=== PATIENT | female | born 1945 | race Caucasian/White ===

== ENCOUNTER 2024-06-07 04:34 | Inpatient (IN) ==
[2024-06-07 05:05] LABS: Basophils # (auto) 0.03 K/uL (0.00-0.20); Basophils % (auto) 0.2 %; Eosinophils # (auto) 0.04 K/uL (0.00-0.50); Eosinophils % (auto) 0.3 %; Hematocrit (blood only) 45.3 % (37.0-47.0); Hemoglobin 14.8 g/dl (12.0-16.0); Immature Granulocytes # (auto) 0.06 K/uL (0.01-0.20); Immature Granulocytes % (auto) 0.4 %; Lymphocytes # (auto) 1.06 K/uL (1.20-3.40); Lymphocytes % (auto) 7.5 %; Mean Corpuscular Hemoglobin 30.1 pg (25.0-34.0); Mean Corpuscular Hgb Conc 32.7 g/dL (32.0-36.0); Mean Corpuscular Volume 92.1 fL (80.0-100.0); Mean Platelet Volume 10.7 fL (9.4-12.4); Monocytes # (auto) 0.77 K/uL (0.11-0.59); Monocytes % (auto) 5.4 %; Neutrophils # (auto) 12.22 K/uL (1.40-6.50); Neutrophils % (auto) 86.2 %; Platelet Count 209 K/uL (130-400); RDW Coefficient of Variation 13.4 % (11.5-14.5); RDW Standard Deviation 45.7 fL (36.4-46.3); Red Blood Count 4.92 M/uL (4.20-5.40); White Blood Count 14.18 K/ul (4.8-10.8)
[2024-06-07] MEDS: HYDROmorphone INJ 0.5 MG/0.5 ML SYR IV STA ×2 (05:05→07:15)
[2024-06-07] MEDS: ONDANSETRON INJ 2 MG/ML 2 ML VIAL IV STA ×2 (05:05→07:14)
[2024-06-07 05:20] LABS: iSTAT Creatinine 1.2 mg/dl (0.6-1.3); iSTAT Hemoglobin 13.9 g/dl (12.0-16.0); iSTAT Ionized Calcium 1.12 mmol/l (1.12-1.32); iSTAT Potassium 3.3 mmol/L (3.3-5.0)
--- NOTE | 2024-06-07 05:30 | Emergency Department Note ---
Impression & Plan Acute pancreatitis admit to the [facility] ED Provider Note NAME: CHRIS JENSEN AGE: 78 SEX: Female INFORMANT: Patient ED PROVIDER(S): Gianna Duenas DO CHIEF COMPLAINT: epigastric abdominal pain PLAN: Disposition: admit to the [facility] MEDICAL DECISION MAKING: this is a 78-year-old female patient who presents to the emergency department epigastric abdominal pain since last night. patient had developed nausea and vomiting at bedtime. Patient became cool and clammy as the pain increased. Laboratory studies revealed mild leukocytosis with a white count of 14.1. H&H were stable. Glucose was 175. EKG was normal. Troponin was normal. Lipase was significantly elevated at 13,400. CT scan of the abdomen/pelvis revealed evidence of pancreatitis. Upon presentation, I also had concern for possible aortic etiology and the patient had scans of her chest and abdomen. Patient received multiple doses of IV Dilaudid and Zofran for pain and nausea. She remains comfortable at this time while I discussed the case with the [facility] Care/management discussed with: patient's family members who are at the bedside, the assistant front desk manager, and the [facility] Triage Nursing notes: reviewed and agree With them. Vital Signs: reviewed and remarkable for hypertension Additional History obtained from: family members at the bedside Chronic Medical/Social Conditions affecting care: previous stroke, A-fib on anticoagulation, hypertension Differential Diagnosis: abdominal aortic aneurysm, aortic dissection, pancreatitis,gastritis, gastric ulcer, duodenal ulcer Diagnostics, independently interpreted by me: ECG: normal sinus rhythm at a rate of 71 with a right bundle branch block. There is no ST segment elevation or signs of ischemia. Cardiac Monitoring: Normal sinus rhythm at 73 Imaging studies: CT scan of the abdomen/pelvis: As per stat RAD CT scan of the chest: As per stat rad HPI: 78 year old Female arrives for evaluation of epigastric abdominal pain. patient was preparing for bed when she developed moderate epigastric abdominal pain with associated nausea and vomiting. patient was urinating Normally and had a normal bowel movement but this did not relieve her discomfort. PAST MEDICAL HISTORY: hypertension, A-fib PAST SURGICAL HISTORY: Cholecystectomy, stroke SOCIAL HISTORY: patient lives in [place] with her , she denies any alcohol or tobacco use. HOME MEDICATIONS: See list ALLERGIES: none VITALS: See Below PHYSICAL EXAMINATION: HEENT: Head - normocephalic and atraumatic. Pupils are equal, round, and reactive to light. Extraocular eye muscles are intact, and sclera are anicteric. Nose - moist nasal mucosa without discharge. Mouth - moist buccal mucosa. Oropharynx is nonerythematous and there is no tonsillar exudate or edema noted. Neck: Supple; no JVD or cervical lymphadenopathy. Heart: Regular rate and rhythm. There is a normal S1 and S2 with no murmurs, clicks, or gallops appreciated. Lungs: Clear to auscultation bilaterally with no wheezes, rales, or rhonchi. Abdomen: Soft, Moderate tenderness to palpation in the epigastrium. There are normal bowel sounds noted. There are no palpable pulsatile masses or hepatosplenomegaly. There is no guarding, rigidity, or rebound noted. Extremities: No evidence of cyanosis, clubbing, or edema. There are easily palpable peripheral pulses. Skin: Pale and diaphoretic. Emergency department treatment: gambling monitor, IV Dilaudid, IV Zofran, IV normal saline bolus, IV Zofran, IV Dilaudid. Emergency department course: The patient was evaluated in room A-10. A complete history and physical was performed. An IV lock was initiated and labs were drawn as above. An order was placed for continuous cardiac monitoring. The patient was in a A normal sinus rhythm at a rate of 73. Patient was medicated with IV Dilaudid and IV Zofran for pain and nausea. She went for a stat CT scan of the chest and abdomen to rule out aortic dissection. This was negative for aortic pathology but revealed evidence of acute pancreatitis. Patient's pain was returning and she was dry heaving.Patient was treated with IV Zofran and IV Dilaudid for her pain. I discussed the case with the [facility] Hospitalist and they will evaluate for further inpatient care. Past Med/Surg History Problem List (Updated 06/07/24 @ 07:52 by Gianna Duenas DO) Acute pancreatitis (Acute) Acute pancreatitis Social History Smoking Status: Never smoker Preferred Language: Frisian Feels Safe at Home: Yes Home Meds Home Medications Medication Instructions Recorded Confirmed apixaban 5 mg tablet (Eliquis) 5 mg PO BID 06/07/24 06/07/24 atorvastatin 10 mg tablet 40 mg PO DAILY 06/07/24 06/07/24 esomeprazole magnesium 20 mg 20 mg PO DAILY 06/07/24 06/07/24 capsule,delayed release (Nexium 24HR) lisinopril 10 mg tablet 10 mg PO BID 06/07/24 06/07/24 metoprolol tartrate 25 mg tablet 25 mg PO BID 06/07/24 06/07/24 Results & Data (ED) Vital Signs Vital Signs - 24 hr 06/07/24 04:36 06/07/24 05:00 06/07/24 05:30 Temperature 36.5 C Temperature Source Oral Pulse Rate 82 75 Pulse Rate [Left Radial] 73 Pulse Rate from SpO2 Sensor Pulse Rhythm Regular Pulse Rhythm [Left Radial] Regular Pulse Strength [Left Radial] Normal Respiratory Rate 22 18 16 Respiratory Effort / Characteristics Non-Labored Spontaneous Non-Labored Spontaneous Respiratory Depth Normal Normal Respiratory Pattern Regular Blood Pressure 152/69 H Blood Pressure [Right Arm] 131/66 Blood Pressure Mean 96 Blood Pressure Mean [Right Arm] 87 Blood Pressure Position [Right Arm] Pulse Oximetry 93 95 98 Oxygen Delivery Method Room Air Room Air Nasal Cannula Oxygen Flow Rate 2 Sepsis Recent Fever Within 48 Hours No Sepsis New/Unexplained Change in Mental Status No Sepsis Action Taken by Nursing No Action Required 06/07/24 06:30 06/07/24 07:00 Temperature Temperature Source Pulse Rate 68 Pulse Rate [Left Radial] 68 Pulse Rate from SpO2 Sensor 70 Pulse Rhythm Pulse Rhythm [Left Radial] Regular Pulse Strength [Left Radial] Normal Respiratory Rate 17 14 Respiratory Effort / Characteristics Non-Labored Spontaneous Respiratory Depth Normal Respiratory Pattern Regular Blood Pressure 160/87 H Blood Pressure [Right Arm] 144/77 H Blood Pressure Mean 111 Blood Pressure Mean [Right Arm] 99 Blood Pressure Position [Right Arm] Sitting Pulse Oximetry 99 99 Oxygen Delivery Method Nasal Cannula Oxygen Flow Rate 2 Sepsis Recent Fever Within 48 Hours Sepsis New/Unexplained Change in Mental Status Sepsis Action Taken by Nursing Laboratory Data 06/07/24 04:50 06/07/24 04:50 Lab Results 06/07/24 06/07/24 Range/Units 04:50 05:07 WBC 14.18 H (4.8-10.8) K/ul RBC 4.92 (4.20-5.40) M/uL Hgb 14.8 (12.0-16.0) g/dl POC Hgb 13.9 (12.0-16.0) g/dl Hct 45.3 (37.0-47.0) % POC Hct 41 (37-47) % MCV 92.1 (80.0-100.0) fL MCH 30.1 (25.0-34.0) pg MCHC 32.7 (32.0-36.0) g/dL RDW Std Deviation 45.7 (36.4-46.3) fL RDW Coeff of Allison 13.4 (11.5-14.5) % Plt Count 209 (130-400) K/uL MPV 10.7 (9.4-12.4) fL Immature Gran % (Auto) 0.4 % Neut % (Auto) 86.2 % Lymph % (Auto) 7.5 % [place] % (Auto) 5.4 % Eos % (Auto) 0.3 % Baso % (Auto) 0.2 % Neut # (Auto) 12.22 H (1.40-6.50) K/uL Lymph # (Auto) 1.06 L (1.20-3.40) K/uL [place] # (Auto) 0.77 H (0.11-0.59) K/uL Eos # (Auto) 0.04 (0.00-0.50) K/uL Baso # (Auto) 0.03 (0.00-0.20) K/uL Immature Gran # (Auto) 0.06 (0.01-0.20) K/uL POC Sodium 143 (135-144) mmol/L Sodium 140 (136-145) mmol/L POC Potassium 3.3 (3.3-5.0) mmol/L Potassium TNP POC Chloride 103 (101-112) mmol/L Chloride 105 (98-107) mmol/L Carbon Dioxide 28 (21-32) mmol/L POC Total CO2 27 (24-31) mmol/L Anion Gap 7 (3-11) POC Anion Gap 17.0 (16-25) mmol/L POC BUN 21 H (7-18) mg/dl BUN 22 (6-23) mg/dl Creatinine 1.10 (0.6-1.2) mg/dl POC Creatinine 1.2 (0.6-1.3) mg/dl Est Cr Clr Drug Dosing Not Reportable Est GFR ( Amer) 56.1 ml/min Est GFR (Non-Af Amer) 48.4 ml/min BUN/Creatinine Ratio 20.0 (10-20) Glucose 175 H (70-99(Fasting)) mg/dl POC Glucose (other) 165 H (70-99) mg/dl Calcium 9.3 (8.6-10.3) mg/dl POC Ioniz Calcium Maeve 1.12 (1.12-1.32) mmol/l Total Bilirubin 0.9 (0.2-1.0) mg/dl AST TNP ALT 92 H (7-52) U/L Alkaline Phosphatase 114 H (34-104) U/L Troponin I High Sens 10.0 (0-14) pg/ml Total Protein 7.5 (6.0-8.3) gm/dl Albumin 4.0 (3.4-5.0) gm/dl Globulin 3.5 (2.5-4.0) gm/dl Albumin/Globulin Ratio 1.1 (0.9-2) Lipase 46334 H (11-82) U/L Administered Medications Discontinued Medications Hydromorphone HCl (Hydromorphone Inj 0.5 Mg/0.5 Ml Syr) 0.5 mg IV NOW STA Stop: 06/07/24 04:59 Last Admin: 06/07/24 05:05 Dose: 0.5 mg Documented By: CARL Hydromorphone HCl (Hydromorphone Inj 0.5 Mg/0.5 Ml Syr) 0.5 mg IV NOW STA Stop: 06/07/24 07:06 Last Admin: 06/07/24 07:15 Dose: 0.5 mg Documented By: Sodium Chloride (Nss) 500 mls @ 999 mls/hr IV .Q31M ONE Stop: 06/07/24 07:35 Last Admin: 06/07/24 07:15 Dose: 999 mls/hr Documented By: MR Ioversol (Optiray 320 125ml) 125 ml IV ONCE ONE Stop: 06/07/24 05:33 Last Admin: 06/07/24 05:32 Dose: 118 ml Documented By: RODRIGO Ondansetron HCl (Ondansetron Inj 2 Mg/Ml 2 Ml Vial) 4 mg IV NOW STA Stop: 06/07/24 04:59 Last Admin: 06/07/24 05:05 Dose: 4 mg Documented By: CARL Ondansetron HCl (Ondansetron Inj 2 Mg/Ml 2 Ml Vial) 4 mg IV NOW STA Stop: 06/07/24 07:06 Last Admin: 06/07/24 07:14 Dose: 4 mg Documented By: Ondansetron HCl (Ondansetron Inj 2 Mg/Ml 2 Ml Vial) Confirm Administered Dose 4 mg .ROUTE .STK-MED ONE Stop: 06/07/24 07:07 Last Admin: 06/07/24 07:15 Dose: Not Given Documented By: MR Imaging Data Radiologist's Impression: Abdomen/Pelvis CTA 06/07/24 04:58 Exam(s): CTA ABDOMEN + PELVIS With Contrast IV Amt: 118 ML OPTIRAY 320 EXAM: CT Angiography Abdomen and Pelvis Without and With Intravenous Contrast CLINICAL HISTORY: Reason for exam: eval for aortic dissection. TECHNIQUE: Axial computed tomographic angiography images of the abdomen and pelvis without and with intravenous contrast. CTDI is 28.14 mGy and DLP is 3286. 34 mGy-cm. Automated exposure control was utilized for the study. A dose lowering technique was utilized adhering to the principles of ALARA. MIP reconstructed images were created and reviewed. CONTRAST: Patient received 118 ML OPTIRAY 320 of IV contrast COMPARISON: No relevant prior studies available. FINDINGS: VASCULATURE: Aorta: No acute findings. No abdominal aortic aneurysm. No dissection. Celiac trunk and mesenteric arteries: No acute findings. No occlusion or significant stenosis. Renal arteries: No acute findings. No occlusion or significant stenosis. Iliac arteries: No acute findings. No occlusion or significant stenosis. Lung bases: Unremarkable. No mass. No consolidation. ABDOMEN: Liver: Trace perihepatic fluid. Gallbladder and bile ducts: The gallbladder is not seen. CBD caliber measures up to 9 mm in diameter. Pancreas: Extensive peripancreatic inflammatory changes are seen. The pancreatic duct is not dilated. Spleen: Unremarkable. No splenomegaly. Adrenals: Unremarkable. No mass. Kidneys and ureters: Focal cortical scarring seen at the lower pole of the right kidney. No obstructing stones. No hydronephrosis. Stomach and bowel: Unremarkable. No obstruction. No mucosal thickening. PELVIS: Appendix: No findings to suggest acute appendicitis. Bladder: Unremarkable. No stones. No mass. Reproductive: There are 2 calcified uterine fibroids, the larger one measuring 4.3 cm in diameter. ABDOMEN and PELVIS: Intraperitoneal space: Unremarkable. No significant fluid collection. No free air. Bones/joints: No acute fracture. No dislocation. Moderate to severe degenerative disc disease changes seen in the upper lumbar and lower thoracic spine. Lymph nodes: Unremarkable. No enlarged lymph nodes. IMPRESSION: Acute pancreatitis. Electronically signed by: Alonso Santos MD 06/07/24 07:00 AM Chest CTA 06/07/24 04:58 Exam(s): CTA CHEST W/WO Contrast IV Amt: 118 ML OPTIRAY 320 EXAM: CT Angiography Chest Without and With Intravenous Contrast CLINICAL HISTORY: Reason for exam: eval for aortic dissetion. TECHNIQUE: Axial computed tomographic angiography images of the chest without and with intravenous contrast. CTDI is 28.14 mGy and DLP is 3286.34 mGy-cm. Automated exposure control was utilized for the study. A dose lowering technique was utilized adhering to the principles of ALARA. MIP reconstructed images were created and reviewed. CONTRAST: Patient received 118 ML OPTIRAY 320 of IV contrast COMPARISON: No relevant prior studies available. FINDINGS: Pulmonary arteries: Unremarkable. No pulmonary embolism. Aorta: No acute findings. No thoracic aortic aneurysm. Lungs: Unremarkable. No mass. No consolidation. Pleural space: Unremarkable. No significant effusion. No pneumothorax. Heart: Mild cardiomegaly. Mild coronary vascular calcifications are seen. No significant pericardial effusion. No evidence of RV dysfunction. Bones/joints: No acute fracture. No dislocation. Soft tissues: Unremarkable. Lymph nodes: Unremarkable. No enlarged lymph nodes. Pancreas: The pancreatic inflammatory changes are seen. IMPRESSION: 1. No evidence of acute pulmonary embolism. No aortic dissection 2. Changes of pancreatitis Electronically signed by: Alonso Santos MD 06/07/24 06:41 AM Discharge Plan Visit Data Chief Complaint: Abdominal Pain Stated Complaint: DRY HEAVING,VOMITING,CLAMMY,ABDOMINAL PAIN ED Provider: Gianna Duenas Discharge Problem: Acute pancreatitis Forms Stand Alone Forms: My [employer] Prescriptions Prescriptions: No Action atorvastatin 10 mg Tablet 40 mg PO DAILY Rx Instructions: pt unsure of dose Eliquis 5 mg Tablet 5 mg PO BID lisinopril 10 mg Tablet 10 mg PO BID esomeprazole magnesium [Nexium 24HR] 20 mg Capsule,Delayed Release(Dr/Ec) 20 mg PO DAILY metoprolol tartrate 25 mg Tablet 25 mg PO BID Referrals Referrals: PCP,NO [Physician] -
[2024-06-07] MEDS: OPTIRAY 320 125ml IV ONE (05:32)
--- NOTE | 2024-06-07 06:42 | CT Scan Report ---
Exam(s): CTA CHEST W/WO Contrast IV Amt: 118 ML OPTIRAY 320 EXAM: CT Angiography Chest Without and With Intravenous Contrast CLINICAL HISTORY: Reason for exam: eval for aortic dissetion. TECHNIQUE: Axial computed tomographic angiography images of the chest without and with intravenous contrast. CTDI is 28.14 mGy and DLP is 3286.34 mGy-cm. Automated exposure control was utilized for the study. A dose lowering technique was utilized adhering to the principles of ALARA. MIP reconstructed images were created and reviewed. CONTRAST: Patient received 118 ML OPTIRAY 320 of IV contrast COMPARISON: No relevant prior studies available. FINDINGS: Pulmonary arteries: Unremarkable. No pulmonary embolism. Aorta: No acute findings. No thoracic aortic aneurysm. Lungs: Unremarkable. No mass. No consolidation. Pleural space: Unremarkable. No significant effusion. No pneumothorax. Heart: Mild cardiomegaly. Mild coronary vascular calcifications are seen. No significant pericardial effusion. No evidence of RV dysfunction. Bones/joints: No acute fracture. No dislocation. Soft tissues: Unremarkable. Lymph nodes: Unremarkable. No enlarged lymph nodes. Pancreas: The pancreatic inflammatory changes are seen. IMPRESSION: 1. No evidence of acute pulmonary embolism. No aortic dissection 2. Changes of pancreatitis Electronically signed by: Alonso Santos MD 06/07/24 06:41 AM
[2024-06-07 06:49] LABS: Alanine Aminotransferase 92 U/L (7-52); Albumin Globulin Ratio 1.1 (0.9-2); Alkaline Phosphatase 114 U/L (34-104); Anion Gap 7 (3-11); Bilirubin,Total 0.9 mg/dl (0.2-1.0); Blood Urea Nitrogen 22 mg/dl (6-23); Calcium 9.3 mg/dl (8.6-10.3); Carbon Dioxide 28 mmol/L (21-32); Chloride 105 mmol/L (98-107); Est GFR (African American) 56.1 ml/min; Est GFR (Non-African American) 48.4 ml/min; Globulin 3.5 gm/dl (2.5-4.0); Glucose 175 mg/dl (70-99(Fasting)); Sodium 140 mmol/L (136-145); Total Protein 7.5 gm/dl (6.0-8.3)
--- NOTE | 2024-06-07 07:01 | CT Scan Report ---
Exam(s): CTA ABDOMEN + PELVIS With Contrast IV Amt: 118 ML OPTIRAY 320 EXAM: CT Angiography Abdomen and Pelvis Without and With Intravenous Contrast CLINICAL HISTORY: Reason for exam: eval for aortic dissection. TECHNIQUE: Axial computed tomographic angiography images of the abdomen and pelvis without and with intravenous contrast. CTDI is 28.14 mGy and DLP is 3286. 34 mGy-cm. Automated exposure control was utilized for the study. A dose lowering technique was utilized adhering to the principles of ALARA. MIP reconstructed images were created and reviewed. CONTRAST: Patient received 118 ML OPTIRAY 320 of IV contrast COMPARISON: No relevant prior studies available. FINDINGS: VASCULATURE: Aorta: No acute findings. No abdominal aortic aneurysm. No dissection. Celiac trunk and mesenteric arteries: No acute findings. No occlusion or significant stenosis. Renal arteries: No acute findings. No occlusion or significant stenosis. Iliac arteries: No acute findings. No occlusion or significant stenosis. Lung bases: Unremarkable. No mass. No consolidation. ABDOMEN: Liver: Trace perihepatic fluid. Gallbladder and bile ducts: The gallbladder is not seen. CBD caliber measures up to 9 mm in diameter. Pancreas: Extensive peripancreatic inflammatory changes are seen. The pancreatic duct is not dilated. Spleen: Unremarkable. No splenomegaly. Adrenals: Unremarkable. No mass. Kidneys and ureters: Focal cortical scarring seen at the lower pole of the right kidney. No obstructing stones. No hydronephrosis. Stomach and bowel: Unremarkable. No obstruction. No mucosal thickening. PELVIS: Appendix: No findings to suggest acute appendicitis. Bladder: Unremarkable. No stones. No mass. Reproductive: There are 2 calcified uterine fibroids, the larger one measuring 4.3 cm in diameter. ABDOMEN and PELVIS: Intraperitoneal space: Unremarkable. No significant fluid collection. No free air. Bones/joints: No acute fracture. No dislocation. Moderate to severe degenerative disc disease changes seen in the upper lumbar and lower thoracic spine. Lymph nodes: Unremarkable. No enlarged lymph nodes. IMPRESSION: Acute pancreatitis. Electronically signed by: Alonso Santos MD 06/07/24 07:00 AM
[2024-06-07] MEDS: ONDANSETRON INJ 2 MG/ML 2 ML VIAL ONE (07:15)
[2024-06-07] MEDS: SODIUM CHLORIDE 0.9% 500 ML IV ONE (07:15)
[2024-06-07 07:25] LABS: Lipase 13400 U/L (11-82)
--- NOTE | 2024-06-07 07:43 | History & Physical Report ---
<Statement entered by Jose Gomes, - 06/07/24 13:09> I have seen and examined the patient and have discussed the case with the provider above. I have reviewed the advanced practitioner's documentation, and I agree with, and take responsibility for that plan of care. 20 minutes spent in coordinating care with IZABELA and evaluation the patient Patient seen and examined while still in ED. Acute onset of abdominal pain. Never experienced anything like this before. Abdomen: Tender epigastric area with some mild guarding, no rigidity or rebound MRCP's positive for pancreatitis but no evidence of cholelithiasis or obstruction of the pancreatic duct or common bile duct Triglyceride 66 Acute pancreatitis, unclear etiology, possibly due to TRAE inhibitor Reviewed GI consultation Additional plan of care as outlined below Date of Service June 07, 2024 Assessment & Plan (1) Acute pancreatitis: (2) History of ischemic stroke: (3) Atrial fibrillation: (4) HTN (hypertension): Plan This is a 78-year-old female who has a significant past medical history of atrial fibrillation anticoagulated on Eliquis with history of previous ablation, 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 Gomes, please see addendum A total of 76 minutes was spent coordinating, documenting, and providing care for this patient excluding time spent in the performance of separately billed services. This included personally viewing all current laboratories and imaging studies, medication reconciliation, outpatient chart review, and discussion with specialists. History of Present Illness Chief Complaint: epigastric abdominal pain x 1 day. 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 Her is at bedside who also helps elicit history. They are from the [facility]. They traveled up to the area to visit their camp. They came up yesterday on the way up at about 4:30 PM they ate dinner which consisted of a fast food hamburger. She went to bed at approximately 11 PM. She then woke up at about 2 AM with an acute onset of epigastric abdominal pain. The pain was nonradiating but severe, 10 out of 10. She felt sweaty and clammy. She was also nauseated and had a few episodes of emesis. She denies any hematemesis. She did have a bowel movement which was normal for her this morning. She denies any melena or hematochezia. She denies similar symptoms in the past. She denies any prior history of pancreatitis. She denies any recent illness. She denies any fever, chills, sweats, lightheadedness, dizziness, chest pain, shortness of breath, cough, URI symptoms, dysuria, increased urgency or frequency with urination. Upon arriving to ED she did receive multiple rounds of IV Dilaudid and she does feel this has alleviated her symptoms. She does have a prior history of a cholecystectomy roughly 10 years ago. She also required an ERCP in the past, but is unsure why. She denies any alcohol use. In ED patient remained hemodynamically stable. She had mild leukocytosis of 14,000. Her lipase was elevated at 13,400 and she had a mild elevation in her ALT at 92. Her total bilirubin was normal. She was mildly hyperglycemic at 175. She denies any prior history of diabetes. Allergies Allergy/AdvReac Type Severity Reaction Status Date / Time No Known Allergies Allergy Verified 06/07/24 08:52 Home Medications Medication Instructions Recorded Confirmed Type apixaban 5 mg tablet (Eliquis) 5 mg PO BID 06/07/24 06/07/24 History atorvastatin 10 mg tablet 40 mg PO HS 06/07/24 06/07/24 History esomeprazole magnesium 20 mg 20 mg PO DAILY 06/07/24 06/07/24 History capsule,delayed release (Nexium 24HR) lisinopril 10 mg tablet 10 mg PO BID 06/07/24 06/07/24 History metoprolol tartrate 25 mg tablet 25 mg PO BID 06/07/24 06/07/24 History Past Med/Surg History Problem List (Updated 06/07/24 @ 08:01 by Enid Restrepo PA-C) Acute pancreatitis (Acute) Acute pancreatitis Medical History (Updated 06/07/24 @ 08:01 by Enid Restrepo PA-C) HTN (hypertension) Atrial fibrillation History of ischemic stroke with bitemporal hemiopsia Surgical History (Updated 06/07/24 @ 08:01 by Enid Restrepo PA-C) Hx of prior ablation treatment History of partial hysterectomy Hx of cholecystectomy Family History (Updated 06/07/24 @ 08:03 by Enid Restrepo PA-C) Father Lung cancer Mother Colorectal cancer Social History (Updated 06/07/24 @ 08:04 by Enid Restrepo PA-C) Smoking Status: Never smoker Hx Alcohol Use: No Hx Substance Use: No Preferred Language: Macedonian marital status: Current Living Situation: Spouse Feels Safe at Home: Yes Review of Systems Review of Systems: All systems reviewed & are unremarkable except as noted in HPI & below Physical Exam Physical Exam: Constitutional: WD/WN, vitals as above, NAD, sitting up in bed, pleasant, conversing easily Head: Normocephalic, Atraumatic Eyes: PERRL, conjunctivae normal, anicteric sclerae ENMT: external ear and nose normal, oropharynx normal Neck: trachea midline, no thyromegaly normal visual inspection Respiratory: normal respiratory effort, lungs clear to auscultation, no wheeze, rales, rhonchi. Normal insp/exp effort, no accessory muscle use Cardiovascular: RRR, no murmur, no edema Vessels: no JVD or carotid bruit Chest: normal inspection of chest Abdomen: normal bowel sounds, soft, TTP epigastrum, no rebound, guarding, no hepatosplenomegaly Musculoskeletal: no cyanosis or clubbing, extremities motor strength 5/5 Skin: no rashes, warm and dry normal turgor Neurologic: PERRL, EOMI, accommodation nl, no face palsy, no dysarthria CN's II-XI intact bilaterally and moves all extremities Psychiatric: A+Ox3, euthymic affect : deferred Results & Data Results & Data Vital Signs (Past 12 Hours) Vital Signs Temp Pulse Pulse Resp BP BP Pulse Ox 06/07/24 07:00 68 14 160/87 H 99 06/07/24 06:30 68 17 144/77 H 99 06/07/24 05:30 73 16 131/66 98 06/07/24 05:00 75 18 95 06/07/24 04:36 36.5 C 82 22 152/69 H 93 O2 Del Method O2 Flow Rate 06/07/24 07:00 2 06/07/24 06:30 Nasal Cannula 06/07/24 05:30 Nasal Cannula 2 06/07/24 05:00 Room Air 06/07/24 04:36 Room Air Laboratory Results I have independently reviewed and interpreted patient's admitting labs including CBC, CMP, lipase Diagnostic Findings Abdomen/Pelvis CTA 06/07/24 04:58 Exam(s): CTA ABDOMEN + PELVIS With Contrast IV Amt: 118 ML OPTIRAY 320 EXAM: CT Angiography Abdomen and Pelvis Without and With Intravenous Contrast CLINICAL HISTORY: Reason for exam: eval for aortic dissection. TECHNIQUE: Axial computed tomographic angiography images of the abdomen and pelvis without and with intravenous contrast. CTDI is 28.14 mGy and DLP is 3286. 34 mGy-cm. Automated exposure control was utilized for the study. A dose lowering technique was utilized adhering to the principles of ALARA. MIP reconstructed images were created and reviewed. CONTRAST: Patient received 118 ML OPTIRAY 320 of IV contrast COMPARISON: No relevant prior studies available. FINDINGS: VASCULATURE: Aorta: No acute findings. No abdominal aortic aneurysm. No dissection. Celiac trunk and mesenteric arteries: No acute findings. No occlusion or significant stenosis. Renal arteries: No acute findings. No occlusion or significant stenosis. Iliac arteries: No acute findings. No occlusion or significant stenosis. Lung bases: Unremarkable. No mass. No consolidation. ABDOMEN: Liver: Trace perihepatic fluid. Gallbladder and bile ducts: The gallbladder is not seen. CBD caliber measures up to 9 mm in diameter. Pancreas: Extensive peripancreatic inflammatory changes are seen. The pancreatic duct is not dilated. Spleen: Unremarkable. No splenomegaly. Adrenals: Unremarkable. No mass. Kidneys and ureters: Focal cortical scarring seen at the lower pole of the right kidney. No obstructing stones. No hydronephrosis. Stomach and bowel: Unremarkable. No obstruction. No mucosal thickening. PELVIS: Appendix: No findings to suggest acute appendicitis. Bladder: Unremarkable. No stones. No mass. Reproductive: There are 2 calcified uterine fibroids, the larger one measuring 4.3 cm in diameter. ABDOMEN and PELVIS: Intraperitoneal space: Unremarkable. No significant fluid collection. No free air. Bones/joints: No acute fracture. No dislocation. Moderate to severe degenerative disc disease changes seen in the upper lumbar and lower thoracic spine. Lymph nodes: Unremarkable. No enlarged lymph nodes. IMPRESSION: Acute pancreatitis. Electronically signed by: Alonso Santos MD 06/07/24 07:00 AM Chest CTA 06/07/24 04:58 Exam(s): CTA CHEST W/WO Contrast IV Amt: 118 ML OPTIRAY 320 EXAM: CT Angiography Chest Without and With Intravenous Contrast CLINICAL HISTORY: Reason for exam: eval for aortic dissetion. TECHNIQUE: Axial computed tomographic angiography images of the chest without and with intravenous contrast. CTDI is 28.14 mGy and DLP is 3286.34 mGy-cm. Automated exposure control was utilized for the study. A dose lowering technique was utilized adhering to the principles of ALARA. MIP reconstructed images were created and reviewed. CONTRAST: Patient received 118 ML OPTIRAY 320 of IV contrast COMPARISON: No relevant prior studies available. FINDINGS: Pulmonary arteries: Unremarkable. No pulmonary embolism. Aorta: No acute findings. No thoracic aortic aneurysm. Lungs: Unremarkable. No mass. No consolidation. Pleural space: Unremarkable. No significant effusion. No pneumothorax. Heart: Mild cardiomegaly. Mild coronary vascular calcifications are seen. No significant pericardial effusion. No evidence of RV dysfunction. Bones/joints: No acute fracture. No dislocation. Soft tissues: Unremarkable. Lymph nodes: Unremarkable. No enlarged lymph nodes. Pancreas: The pancreatic inflammatory changes are seen. IMPRESSION: 1. No evidence of acute pulmonary embolism. No aortic dissection 2. Changes of pancreatitis Electronically signed by: Alonso Santos MD 06/07/24 06:41 AM Medications Administered Medication List Discontinued Medications Hydromorphone HCl (Hydromorphone Inj 0.5 Mg/0.5 Ml Syr) 0.5 mg IV NOW STA Stop: 06/07/24 04:59 Last Admin: 06/07/24 05:05 Dose: 0.5 mg Documented By: CARL Hydromorphone HCl (Hydromorphone Inj 0.5 Mg/0.5 Ml Syr) 0.5 mg IV NOW STA Stop: 06/07/24 07:06 Last Admin: 06/07/24 07:15 Dose: 0.5 mg Documented By: Sodium Chloride (Nss) 500 mls @ 999 mls/hr IV .Q31M ONE Stop: 06/07/24 07:35 Last Admin: 06/07/24 07:15 Dose: 999 mls/hr Documented By: Ioversol (Optiray 320 125ml) 125 ml IV ONCE ONE Stop: 06/07/24 05:33 Last Admin: 06/07/24 05:32 Dose: 118 ml Documented By: RODRIGO Ondansetron HCl (Ondansetron Inj 2 Mg/Ml 2 Ml Vial) 4 mg IV NOW STA Stop: 06/07/24 04:59 Last Admin: 06/07/24 05:05 Dose: 4 mg Documented By: CARL Ondansetron HCl (Ondansetron Inj 2 Mg/Ml 2 Ml Vial) 4 mg IV NOW STA Stop: 06/07/24 07:06 Last Admin: 06/07/24 07:14 Dose: 4 mg Documented By: Ondansetron HCl (Ondansetron Inj 2 Mg/Ml 2 Ml Vial) Confirm Administered Dose 4 mg .ROUTE .STK-MED ONE Stop: 06/07/24 07:07 Last Admin: 06/07/24 07:15 Dose: Not Given Documented By: ECG Additional Comments: I have independently reviewed and interpreted patient's admitting EKG which revealed: 71, nsr, qtc 482ms, RBBB COVID-19 Results Results COVID-19 Adm Lab Results: RBC 4.92 M/uL (4.20-5.40) 06/07/24 WBC 14.18 K/ul (4.8-10.8) H 06/07/24 Hgb 14.8 g/dl (12.0-16.0) 06/07/24 Hct 45.3 % (37.0-47.0) 06/07/24 Plt Count 209 K/uL (130-400) 06/07/24 Neutrophils (%) (Auto) 86.2 % 06/07/24 Lymphocytes (%) (Auto) 7.5 % 06/07/24 Monocytes # (Auto) 0.77 K/uL (0.11-0.59) H 06/07/24 Immature Granulocyte % (Auto) 0.4 % 06/07/24 Neutrophils # (Auto) 12.22 K/uL (1.40-6.50) H 06/07/24 Monocytes # (Auto) 0.77 K/uL (0.11-0.59) H 06/07/24 Basophils # (Auto) 0.03 K/uL (0.00-0.20) 06/07/24 Immature Granulocyte # (Auto) 0.06 K/uL (0.01-0.20) 4 Na 140 mmol/L (136-145) 06/07/24 K TNP 06/07/24 Cl 105 mmol/L (98-107) 06/07/24 CO2 28 mmol/L (21-32) 06/07/24 Anion Gap 7 (3-11) 06/07/24 BUN 22 mg/dl (6-23) 06/07/24 Creatinine 1.10 mg/dl (0.6-1.2) 06/07/24 BUN/Creatinine Ratio 20.0 (10-20) 06/07/24 Glucose Level 175 mg/dl (70-99(Fasting)) H 06/07/24 Ca 9.3 mg/dl (8.6-10.3) 06/07/24 Total Bilirubin 0.9 mg/dl (0.2-1.0) 06/07/24 AST/SGOT TNP 06/07/24 ALT/SGPT 92 U/L (7-52) H 06/07/24 Alkaline Phosphatase 114 U/L (34-104) H 06/07/24 Total Protein 7.5 gm/dl (6.0-8.3) 06/07/24 Albumin 4.0 gm/dl (3.4-5.0) 06/07/24 Globulin 3.5 gm/dl (2.5-4.0) 06/07/24 Albumin/Globulin Ratio 1.1 (0.9-2) 06/07/24 Code Status & VTE Plan Code Status FULL CODE VTE Prophylaxis Plan VTE Prophylaxis will be ordered: No Reason for no VTE drug order: Treatment not indicated
--- NOTE | 2024-06-07 08:30 | Electrocardiogram Report ---
Test Reason : Blood Pressure : */* mmHG Vent. Rate : 71 BPM Atrial Rate : 71 BPM P-R Int : 162 ms QRS Dur : 152 ms QT Int : 444 ms P-R-T Axes : 16 -39 -30 degrees QTcB Int : 482 ms Normal sinus rhythm Left axis deviation Right bundle branch block Voltage criteria for left ventricular hypertrophy Abnormal ECG No previous ECGs available Confirmed by Umang Starkey ([id number]) on 06/07/2024 8:29:49 AM Referred By: Confirmed By: Umang Starkey
[2024-06-07] MEDS: Patient's ALLERGY Info needs ENTERED SCH (08:54)
[2024-06-07 09:17] LABS: Chol HDL Ratio 2.4 (0-5); Potassium 3.6 mmol/L (3.5-5.1)
[2024-06-07] MEDS ORDERED: Nursing to Pharmacy Communication SCH (10:00)
[2024-06-07] MEDS: PANTOprazole 40 MG in SYRINGE 0 ML IV SCH (10:06)
[2024-06-07] MEDS: LACTATED RINGER'S 1,000 ML IV SCH (10:07)
[2024-06-07] MEDS: ACETAMINOPHEN 1,000 MG/100 ML VIAL IV SCH (10:07)
--- NOTE | 2024-06-07 10:28 | Gastrointestinal Consultation ---
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 Thank you for allowing us to participate in the care of this patient. Please call with any acute changes, questions or concerns. Please see addendum below with additional recommendation from my supervising physician. Supervising Physician Co-Signing Physician Notes I personally saw and examined the patient. I have reviewed the chart and agree with the documentation provided by the MANAGER ASSURANCE including discussion about the assessment, treatment and plan. 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 MRCP: Redemonstration of the patient's known acute pancreatitis. 2. Prior cholecystectomy. 3. Normal caliber common bile duct with no evidence for choledocholithiasis. 4. Normal main pancreatic duct. Idiopathic pancreatitis at this point. Suggest LR at 200 cc/hour, pain control. If better in am, consider clear liquid diet. GI will follow. 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 Suggests was in her typical state of health, ate a burger for dinner and had a few sips of alcohol. Was feeling well, went to bed and woke up with severe upper abd pain, nausea/vomiting. Had a flushing sensation at that time. Notes since arrival to the ED is feeling much better. Remain nauseated but her pain is improved. No vomiting this AM. She denies prior history of pancreatitis. No new medications Does not typically drink ETOH but suggests she had some 5 hours prior to symptoms starting Hospitalist documentation suggests she has had ERCP in the past - she is unsure if she had this or not and no family was available at bedside to confirm. Tbili 0.9 AST 394 ALT 92 ALKP 114 Lipase 13,400 CTAP: Liver: Trace perihepatic fluid. Gallbladder and bile ducts: The gallbladder is not seen. CBD caliber measures up to 9 mm in diameter. Pancreas: Extensive peripancreatic inflammatory changes are seen. The pancreatic duct is not dilated. Stomach and bowel: Unremarkable. No obstruction. No mucosal thickening. Allergies Allergy/AdvReac Type Severity Reaction Status Date / Time No Known Allergies Allergy Verified 06/07/24 08:52 Home Medications Medication Instructions Recorded Confirmed Type apixaban 5 mg tablet (Eliquis) 5 mg PO BID 06/07/24 06/07/24 History atorvastatin 10 mg tablet 40 mg PO HS 06/07/24 06/07/24 History esomeprazole magnesium 20 mg 20 mg PO DAILY 06/07/24 06/07/24 History capsule,delayed release (Nexium 24HR) lisinopril 10 mg tablet 10 mg PO BID 06/07/24 06/07/24 History metoprolol tartrate 25 mg tablet 25 mg PO BID 06/07/24 06/07/24 History Patient History Medical History (Updated 06/07/24 @ 08:01 by Enid Restrepo PA-C) HTN (hypertension) Atrial fibrillation History of ischemic stroke with bitemporal hemiopsia Surgical History (Updated 06/07/24 @ 08:01 by Enid Restrepo PA-C) Hx of prior ablation treatment History of partial hysterectomy Hx of cholecystectomy Family History (Updated 06/07/24 @ 08:03 by Enid Restrepo PA-C) Father Lung cancer Mother Colorectal cancer Social History (Updated 06/07/24 @ 08:04 by Enid Restrepo PA-C) Smoking Status: Never smoker Hx Alcohol Use: No Hx Substance Use: No Preferred Language: Ethiopian marital status: Current Living Situation: Spouse Feels Safe at Home: Yes Review of Systems Review of Systems: All other findings negative except as noted in HPI. Physical Exam Constitutional: WD/WN, vitals as above Respiratory: normal respiratory effort, lungs clear to auscultation Cardiovascular: RRR, no murmur, no edema Gastrointestinal (Abdomen): normal bowel sounds, soft, nontender, no hepatosplenomegaly Skin: no rashes, warm and dry Results & Data Vital Signs (Past 12 Hours) Vital Signs Temp Pulse Pulse Resp BP BP Pulse Ox 06/07/24 10:05 64 16 118/55 L 99 06/07/24 07:00 68 14 160/87 H 99 06/07/24 06:30 68 17 144/77 H 99 06/07/24 05:30 73 16 131/66 98 06/07/24 05:00 75 18 95 06/07/24 04:36 36.5 C 82 22 152/69 H 93 O2 Del Method O2 Flow Rate 06/07/24 10:05 Nasal Cannula 2 06/07/24 07:00 2 06/07/24 06:30 Nasal Cannula 06/07/24 05:30 Nasal Cannula 2 06/07/24 05:00 Room Air 06/07/24 04:36 Room Air Laboratory Results 06/07/24 06/07/24 06/07/24 Range/Units 07:24 05:07 04:50 WBC 14.18 H (4.8-10.8) K/ul RBC 4.92 (4.20-5.40) M/uL Hgb 14.8 (12.0-16.0) g/dl POC Hgb 13.9 (12.0-16.0) g/dl Hct 45.3 (37.0-47.0) % POC Hct 41 (37-47) % MCV 92.1 (80.0-100.0) fL MCH 30.1 (25.0-34.0) pg MCHC 32.7 (32.0-36.0) g/dL RDW Std Deviation 45.7 (36.4-46.3) fL RDW Coeff of Allison 13.4 (11.5-14.5) % Plt Count 209 (130-400) K/uL MPV 10.7 (9.4-12.4) fL Immature Gran % (Auto) 0.4 % Neut % (Auto) 86.2 % Lymph % (Auto) 7.5 % Drew % (Auto) 5.4 % Eos % (Auto) 0.3 % Baso % (Auto) 0.2 % Neut # (Auto) 12.22 H (1.40-6.50) K/uL Lymph # (Auto) 1.06 L (1.20-3.40) K/uL Drew # (Auto) 0.77 H (0.11-0.59) K/uL Eos # (Auto) 0.04 (0.00-0.50) K/uL Baso # (Auto) 0.03 (0.00-0.20) K/uL Immature Gran # (Auto) 0.06 (0.01-0.20) K/uL POC Sodium 143 (135-144) mmol/L Sodium 140 (136-145) mmol/L POC Potassium 3.3 (3.3-5.0) mmol/L Potassium 3.6 TNP POC Chloride 103 (101-112) mmol/L Chloride 105 (98-107) mmol/L Carbon Dioxide 28 (21-32) mmol/L POC Total CO2 27 (24-31) mmol/L Anion Gap 7 (3-11) POC Anion Gap 17.0 (16-25) mmol/L POC BUN 21 H (7-18) mg/dl BUN 22 (6-23) mg/dl Creatinine 1.10 (0.6-1.2) mg/dl POC Creatinine 1.2 (0.6-1.3) mg/dl Est Cr Clr Drug Dosing Not Reportable Est GFR ( Amer) 56.1 ml/min Est GFR (Non-Af Amer) 48.4 ml/min BUN/Creatinine Ratio 20.0 (10-20) Glucose 175 H (70-99(Fasting)) mg/dl POC Glucose (other) 165 H (70-99) mg/dl Calcium 9.3 (8.6-10.3) mg/dl POC Ioniz Calcium Maeve 1.12 (1.12-1.32) mmol/l Total Bilirubin 0.9 (0.2-1.0) mg/dl AST 394 H TNP ALT 92 H (7-52) U/L Alkaline Phosphatase 114 H (34-104) U/L Troponin I High Sens 10.0 (0-14) pg/ml Total Protein 7.5 (6.0-8.3) gm/dl Albumin 4.0 (3.4-5.0) gm/dl Globulin 3.5 (2.5-4.0) gm/dl Albumin/Globulin Ratio 1.1 (0.9-2) Triglycerides 66 (0-150) mg/dl Cholesterol 136 (0-200) mg/dl LDL Cholesterol, Calc 66 mg/dl VLDL Cholesterol, Calc 13 (0-30) mg/dl HDL Cholesterol 57 mg/dl Cholesterol/HDL Ratio 2.4 (0-5) Lipase 21855 H (11-82) U/L PG Care Time/CCT Total # of Minutes Spent Total Time Spent with Patient: Total time spent is greater than 50% in coordination of care (as documented) at patient's floor/unit and/or counseling patient: Coding Level of Care Code 41335 INT INP/OBS CARE MIN Diagnoses Acute pancreatitis K85.90
[2024-06-07] MEDS: PROMETHAZINE 12.5 MG/50.5 ML BAG IV PRN (11:50)
--- NOTE | 2024-06-07 12:02 | Magnetic Resonance Report ---
MR MRCP HISTORY: acute pancreatitis TECHNIQUE: MRCP of the abdomen was performed without contrast according to standard departmental prot ocol. COMPARISON STUDY: Abdomen and pelvis CT 06/07/2024. FINDINGS: A few bibasilar linear densities consistent with subsegmental atelectasis. The heart is mil dly enlarged. No hepatic or splenic masses. The pancreas is edematous and there is a moderate amount of peripancreatic fluid noted consistent with acute pancreatitis. This is similar to the prior study. Prior cholecystectomy. The adrenal glands are unremarkable. No hydronephrosis. Small bilateral perip elvic renal cysts are noted. No retroperitoneal lymphadenopathy. Normal caliber abdominal aorta. The visualized loops of bowel show no wall thickening or obstruction. The common bile duct measures up to 7 mm which is within normal limits given the patient's age. No filling defects within the common carla e duct to suggest choledocholithiasis. No intrahepatic bile duct dilatation. The main pancreatic duct is normal and course and caliber. IMPRESSION: 1. Redemonstration of the patient's known acute pancreatitis. 2. Prior cholecystectomy. 3. Normal caliber common bile duct with no evidence for choledocholithiasis. 4. Normal main pancreatic duct ACT 112: Negative or not required by law. Electronically signed by: Irving Patel M.D. 06/07/2024 12:00 PM
[2024-06-07] MEDS: HYDROmorphone INJ 0.5 MG/0.5 ML SYR IV PRN (14:05)
[2024-06-07] MEDS: APIXABAN 5 MG TABLET PO SCH (14:43)
[2024-06-07] MEDS: METOPROLOL TARTRATE 25 MG TAB PO SCH (14:43)
[2024-06-07] MEDS: ONDANSETRON INJ 2 MG/ML 2 ML VIAL IV PRN (17:37)
[2024-06-07] MEDS: DOCUSATE SODIUM 100 MG CAP PO SCH (23:11)
[2024-06-07] MEDS: ATORVASTATIN 40 MG TAB PO SCH (23:11)
[2024-06-08] MEDS: oxyCODONE HCL IR 5 MG TAB (IMMEDIATE RELEASE) PO PRN (01:04)
[2024-06-08 03:01] LABS: Appearance Urine Cloudy (Clear); Bacteria Urine Automated None Seen (None Seen); Bilirubin Urine Negative (Negative); Blood Urine Negative (Negative); Cast Urine Automated 0-2 /lpf (0-2); Color Urine Yellow; Glucose Urine UA Negative (Negative); Ketones Urine Negative (Negative); Leukocyte Esterase Urine Negative (Negative); Nitrite Urine Negative (Negative); Protein Urine Trace (Negative); RBC Urine Automated 0-2 /hpf (0-2); Urobilinogen Urine Negative (Negative); WBC Urine Automated 0-5 /hpf (0-5)
[2024-06-08 06:15] LABS: Hematocrit (blood only) 46.9 % (37.0-47.0); Hemoglobin 15.4 g/dl (12.0-16.0); Mean Corpuscular Hemoglobin 29.9 pg (25.0-34.0); Mean Corpuscular Hgb Conc 32.8 g/dL (32.0-36.0); Mean Corpuscular Volume 91.1 fL (80.0-100.0); Platelet Count 202 K/uL (130-400); RDW Coefficient of Variation 13.7 % (11.5-14.5); RDW Standard Deviation 46.2 fL (36.4-46.3); Red Blood Count 5.15 M/uL (4.20-5.40)
[2024-06-08 06:38] LABS: Basophils # (auto) 0.02 K/uL (0.00-0.20); Basophils % (auto) 0.1 %; Immature Granulocytes # (auto) 0.07 K/uL (0.01-0.20); Immature Granulocytes % (auto) 0.5 %; Lymphocytes % (auto) 3.3 %; Monocytes # (auto) 0.84 K/uL (0.11-0.59); Monocytes % (auto) 5.6 %; Neutrophils # (auto) 13.67 K/uL (1.40-6.50); Neutrophils % (auto) 90.5 %; Polychromasia 1+; Toxic Vacuolation 1+
[2024-06-08 08:14] LABS: Albumin Globulin Ratio 1.2 (0.9-2); Albumin Level 3.7 gm/dl (3.4-5.0); BUN Creatinine Ratio 20.8 (10-20); Bilirubin,Total 1.5 mg/dl (0.2-1.0); Calcium 8.6 mg/dl (8.6-10.3); Est GFR (African American) 58.7 ml/min; Est GFR (Non-African American) 50.6 ml/min; Magnesium 1.6 mg/dl (1.7-2.4); Potassium 4.3 mmol/L (3.5-5.1); Total Protein 6.7 gm/dl (6.0-8.3)
[2024-06-08] MEDS ORDERED: Nursing to Pharmacy Communication SCH (09:00)
--- NOTE | 2024-06-08 11:17 | Hospitalist Progress Note ---
Date of Service June 08, 2024 Assessment & Plan (1) Acute pancreatitis: (2) History of ischemic stroke: (3) Atrial fibrillation: (4) HTN (hypertension): Plan Patient with acute pancreatitis of unclear etiology, possible alcohol induced, however patient really minimizes the amount of alcohol she took. Also suspect some of her abdominal pain is musculoskeletal due to the significant vomiting and retching she had. Start clear liquid diet Continue to monitor laboratory studies Encourage activity Replace magnesium Okay to [facility] Admission and Anticipated Discharge Date Admission Date: June 07, 2024 Subjective Patient states her abdomen is still real sore. Willing to try some liquids. Medications helping Physical Exam Physical Exam: Constitutional: Alert moderately ill in appearance HEENT: Mucous membranes moist. Lungs: decreased, no wheezes rales or rhonchi CV: S1-S2, regular Abdomen: Soft, significant epigastric tenderness even to light palpation, no guarding, no rigidity Extremities: Some upper extremity edema Neuro: No focal deficits Psych: Cooperative, normal mood Results & Data Results & Data Vital Signs (Past 12 Hours) Vital Signs Temp Pulse Pulse Resp BP Pulse Ox O2 Del Method 06/08/24 10:36 Room Air 06/08/24 08:24 36.9 C 76 18 154/77 H 90 Room Air 06/08/24 08:22 71 06/08/24 02:42 36.8 C 67 18 148/85 H 90 Room Air 06/07/24 23:20 Room Air Diagnostic Findings Reviewed imaging, laboratory and diagnostic studies. Pertinent findings as below. WBCs 15.1 Magnesium 1.6 Bilirubin and LFTs improving Lipase 532, significantly improved
[2024-06-08 12:22] LABS: Estimated Average Glucose 114 mg/dl; Hemoglobin A1C 5.6 % (4.5-5.6)
[2024-06-08] MEDS: MAGNESIUM SULFATE / D5W 1 GM/100 ML BAG IV SCH (12:44)
[2024-06-09 07:14] LABS: Hematocrit (blood only) 45.6 % (37.0-47.0); Mean Corpuscular Hemoglobin 30.5 pg (25.0-34.0); Mean Corpuscular Hgb Conc 32.9 g/dL (32.0-36.0); Mean Corpuscular Volume 92.9 fL (80.0-100.0); Mean Platelet Volume 11.1 fL (9.4-12.4); Platelet Count 178 K/uL (130-400); RDW Coefficient of Variation 13.8 % (11.5-14.5); Red Blood Count 4.91 M/uL (4.20-5.40); White Blood Count 16.72 K/ul (4.8-10.8)
[2024-06-09 07:37] LABS: Albumin Level 3.1 gm/dl (3.4-5.0); BUN Creatinine Ratio 23.8 (10-20); Bilirubin Direct 0.5 mg/dl (0-0.2); Bilirubin,Total 1.5 mg/dl (0.2-1.0); Calcium 8.2 mg/dl (8.6-10.3); Creatinine Clr Calc Pharmacy 64.3 ml/min; Est GFR (African American) 77.7 ml/min; Potassium 3.9 mmol/L (3.5-5.1); Total Protein 5.8 gm/dl (6.0-8.3)
--- NOTE | 2024-06-09 11:15 | Hospitalist Progress Note ---
Date of Service June 09, 2024 Assessment & Plan (1) Acute pancreatitis: (2) History of ischemic stroke: (3) Atrial fibrillation: (4) HTN (hypertension): Plan Patient with acute pancreatitis symptomatically seems to be improving Suspect WBC elevation due to inflammatory response. Will continue to monitor, continue to hold antibiotics at this time, reevaluate in a.m. Advance to full liquid diet Continue oral pain medications and antiemetics Family at bedside and updated Admission and Anticipated Discharge Date Admission Date: June 07, 2024 Subjective Patient still having some intermittent nausea and pain, however controlled with oral medications. Does not like a lot of the clear liquids. But does states she feels improved compared to yesterday Physical Exam Physical Exam: Constitutional: Alert significantly less ill in appearance HEENT: Mucous membranes moist. Lungs: Clear to auscultation, decreased, no wheezes rales or rhonchi CV: S1-S2, regular Abdomen: Soft, epigastric tenderness significantly improved compared to yesterday, no guarding or rigidity Extremities: Left upper extremity swelling due to infiltrate of IV, some pretibial edema lower extremities Neuro: No focal deficits Psych: Cooperative, normal mood Results & Data Results & Data Vital Signs (Past 12 Hours) Vital Signs Temp Pulse Resp BP Pulse Ox O2 Del Method 06/09/24 07:27 36.8 C 89 16 107/62 91 Room Air 06/09/24 06:28 91 Room Air Diagnostic Findings Reviewed imaging, laboratory and diagnostic studies. Pertinent findings as below. WBCs 16.7, trending upward, LFTs improving Urinalysis unremarkable
[2024-06-10 07:35] LABS: Hematocrit (blood only) 39.1 % (37.0-47.0); Hemoglobin 12.7 g/dl (12.0-16.0); Mean Corpuscular Hgb Conc 32.5 g/dL (32.0-36.0); Mean Corpuscular Volume 92.2 fL (80.0-100.0); Mean Platelet Volume 10.7 fL (9.4-12.4); Platelet Count 147 K/uL (130-400); RDW Coefficient of Variation 13.9 % (11.5-14.5); RDW Standard Deviation 47.2 fL (36.4-46.3); Red Blood Count 4.24 M/uL (4.20-5.40); White Blood Count 12.46 K/ul (4.8-10.8)
[2024-06-10] MEDS: FUROSEMIDE INJ 20 MG/2 ML VIAL IV ONE (11:20)
--- NOTE | 2024-06-10 12:16 | Gastroenterology Progress Note ---
Date of Service June 10, 2024 Assessment & Plan (1) Acute pancreatitis: Plan: Patient with what seems to be idiopathic pancreatitis. she has been feeling better as time goes on and has seen improvement in diet. Will continue to monitor how she does with foods. continue supportive care. Admission and Anticipated Discharge Date Admission Date: June 07, 2024 Supervising Physician Co-Signing Physician Notes I saw and examined this patient with our nurse practitioner and agree with her assessment and plan. Clinically improving less abdominal pain. Etiology of pancreatitis unclear. Imaging nondiagnostic. In light of prior history of cholecystectomy she may have passed a CBD stone. Less likely etiology would be autoimmune pancreatitis or neoplasm. Would consider reimaging her pancreas in 4 to 6 weeks to exclude any hidden pathology obscured by inflammation. 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 MRCP unremarkable. no eoth use. she feels like she has been progressing in the right direction since admission. she still has some epigastric discomfort, but much better than previously. She has been able to tolerate oral intake. this morning she had cream of wheat without issues. she has not attempted lunch yet. she only feels nausea now if she sits up too quickly. no vomiting. Review of Systems Review of Systems: All systems reviewed & are unremarkable except as noted in HPI & below Physical Exam Constitutional: WD/WN, vitals as above Respiratory: normal respiratory effort, lungs clear to auscultation Cardiovascular: Rate/Rhythm: regular rate and regular rhythm Gastrointestinal (Abdomen): epigastric tenderness to palpation. no guarding, soft. normal bowel sounds. Psychiatric: Orientation: alert and oriented x 3 Affect: euthymic affect Results & Data Results & Data Vital Signs (Past 12 Hours) Vital Signs Temp Pulse Resp BP Pulse Ox O2 Del Method 06/10/24 08:22 99.1 F 108 H 28 H 145/80 H 94 Room Air 06/10/24 08:00 Room Air Coding Level of Care Code 72123 SUB INP/OBS CARE /25MIN Diagnoses Acute pancreatitis K85.90
--- NOTE | 2024-06-10 15:25 | Hospitalist Progress Note ---
Date of Service June 10, 2024 Assessment & Plan (1) Acute pancreatitis: (2) History of ischemic stroke: (3) Atrial fibrillation: (4) HTN (hypertension): Plan Patient with resolving acute pancreatitis, concern for possible ileus/constipation Advance diet Saline lock IV fluids Patient looks now volume overloaded with significant positive intake, 1 dose of IV Lasix Encourage activity Transition to oral medications Enema Possible discharge tomorrow if tolerating diet Daughter at bedside and reviewed plan of care Admission and Anticipated Discharge Date Admission Date: June 07, 2024 Subjective Patient states her abdominal pain significantly improved. Not much appetite. Has not had a bowel movement yet. Question if she has passed gas Physical Exam Physical Exam: Constitutional: Alert HEENT: Mucous membranes moist. Lungs: Clear to auscultation, decreased, no wheezes rales or rhonchi CV: S1-S2, regular Abdomen: Soft, epigastric tenderness significantly improved, no guarding or rigidity Extremities: No significant edema Neuro: No focal deficits Psych: Cooperative, normal mood Results & Data Results & Data Vital Signs (Past 12 Hours) Vital Signs Temp Pulse Pulse Resp BP Pulse Ox O2 Del Method 06/10/24 14:03 92 Nasal Cannula 06/10/24 13:09 37.1 C 64 28 H 127/78 89 L Room Air 06/10/24 08:22 37.3 C 108 H 28 H 145/80 H 94 Room Air 06/10/24 08:00 Room Air O2 Flow Rate 06/10/24 14:03 1 06/10/24 13:09 06/10/24 08:22 06/10/24 08:00 Diagnostic Findings Reviewed imaging, laboratory and diagnostic studies. Pertinent findings as below. WBCs 12.4, improved Acute abdominal series films reviewed, some pulmonary congestion, stool in colon and rectum, no obvious obstruction
--- NOTE | 2024-06-10 15:40 | XRay Report ---
PA CHEST WITH ABDOMINAL SERIES CLINICAL HISTORY: Ileus. Nausea. Pancreatitis. FINDINGS: A PA chest radiograph is correlated with chest CT dated 06/07/2024. The heart is enlarged noting ather osclerotic calcification of the thoracic aorta. There is pulmonary vascular congestion. There is volu me loss in the right lung. There is a right pleural effusion with right basilar consolidation. This w as not seen on 06/07/2024. There is also a small pleural effusion on the left with dependent atelectas is The lungs and pleural spaces are clear. No pneumothorax is seen. The skeletal structures are osteo penic. The bony thorax is grossly intact. Supine and erect abdominal radiographs are correlated with abdominal CT dated 06/07/2024. There is a n onobstructed abdominal bowel gas pattern. No evidence of intraperitoneal free air is seen. There is n o radiographic evidence of nephrolithiasis. Large calcified fibroids are seen in the pelvis. Skeletal structures are osteopenic. There is advanced lumbosacral spondylosis and scoliosis. IMPRESSION: 1. Cardiomegaly with pulmonary vascular congestion. 2. Right larger than left pleural effusions with right basilar consolidation. This is new from 024. 3. Nonobstructed abdominal bowel gas pattern. ACT 112: Negative or not required by law. Electronically signed by: Anatoly Cheek M.D. 06/10/2024 3:39 PM
[2024-06-10] MEDS: SOD PHOSPHATE/SOD BIPHOSPHATE ENEMA 132 ML BTL PR ONE (16:26)
[2024-06-10] MEDS: FUROSEMIDE 40 MG/4 ML VIAL IV ONE (20:37)
[2024-06-11 06:14] LABS: Hematocrit (blood only) 38.9 % (37.0-47.0); Hemoglobin 12.9 g/dl (12.0-16.0); Mean Corpuscular Hemoglobin 30.1 pg (25.0-34.0); Mean Corpuscular Hgb Conc 33.2 g/dL (32.0-36.0); Mean Corpuscular Volume 90.9 fL (80.0-100.0); Mean Platelet Volume 10.8 fL (9.4-12.4); Platelet Count 169 K/uL (130-400); RDW Coefficient of Variation 13.7 % (11.5-14.5); Red Blood Count 4.28 M/uL (4.20-5.40)
[2024-06-11 06:53] LABS: Albumin Level 2.7 gm/dl (3.4-5.0); BUN Creatinine Ratio 22.8 (10-20); Bilirubin Direct 0.4 mg/dl (0-0.2); Calcium 7.7 mg/dl (8.6-10.3); Creatinine Clr Calc Pharmacy 68.3 ml/min; Est GFR (African American) 83.7 ml/min; Est GFR (Non-African American) 72.2 ml/min; Potassium 3.4 mmol/L (3.5-5.1); Total Protein 5.6 gm/dl (6.0-8.3)
[2024-06-11] MEDS: POTASSIUM CHLORIDE CRTAB 20 MEQ TABCR PO STA (07:42)
[2024-06-11 07:47] LABS: Magnesium 1.9 mg/dl (1.7-2.4)
[2024-06-11] MEDS: PANTOprazole 40 MG TAB PO SCH (08:08)
[2024-06-11] MEDS: FUROSEMIDE 40 MG/4 ML VIAL IV ONE (09:33)
[2024-06-11] MEDS: MAGNESIUM OXIDE 400 MG TAB PO SCH (09:34)
--- NOTE | 2024-06-11 10:22 | Gastroenterology Progress Note ---
Date of Service June 11, 2024 Assessment & Plan (1) Acute pancreatitis: Plan: Patient with what seems to be idiopathic pancreatitis. she has been feeling overall better as time goes on and has seen improvement in diet, though she still is having ongoing symptoms of epigastric pain. - continue with protonix 40mg once daily. - will discuss case further with Dr. Hendricks. Further recommendations to follow. Admission and Anticipated Discharge Date Admission Date: June 07, 2024 Supervising Physician Co-Signing Physician Notes I saw and examined this patient with our nurse practitioner and agree with her assessment and plan. Continues to improve resolving abdominal pain. Abdominal exam benign. Liver enzymes lipase normalized. Resolving pancreatitis unclear etiology. When discharged should have follow-up imaging with CT scan or MRI of her pancreas to reassess pancreatic parenchyma duct anatomy in 4 to 6 weeks. Subjective Patient tells me that she still has ongoing abdominal pain but better than before. Last evening she tells me she had more issues with her a fib, she is not sure if that is contributing. she has been able to eat without issues but still has no appetite. she had a bowel movement this morning. no blood in the stools or melena. no nausea, vomiting. 06/11/24 Lipase 11, LFTS wnl except d bili 0.4. Review of Systems Review of Systems: All systems reviewed & are unremarkable except as noted in HPI & below Physical Exam Constitutional: WD/WN, vitals as above Respiratory: normal respiratory effort, lungs clear to auscultation Cardiovascular: Rate/Rhythm: regular rate and regular rhythm Gastrointestinal (Abdomen): epigastric tenderness to palpation, no guarding, soft. normal bowel sounds. Psychiatric: Orientation: alert and oriented x 3 Affect: euthymic affect Results & Data Results & Data Vital Signs (Past 12 Hours) Vital Signs Temp Pulse Resp BP Pulse Ox O2 Del Method O2 Flow Rate 06/11/24 08:00 Nasal Cannula 2 06/11/24 07:06 98.6 F 76 16 117/78 96 Room Air Coding Level of Care Code 82117 SUB INP/OBS CARE 11/09MIN Diagnoses Acute pancreatitis K85.90
[2024-06-11] MEDS ORDERED: METOPROLOL TARTRATE 1 MG/ML VIAL IV PRN (10:59)
--- NOTE | 2024-06-11 11:01 | Hospitalist Progress Note ---
<Statement entered by Jose Gomes, DO - 06/11/24 14:50> I have seen and examined the patient and have discussed the case with the provider above. I have reviewed the advanced practitioner's documentation, and I agree with, and take responsibility for that plan of care. 19 minutes spent on evaluation of the patient and coordination care with IZABELA Patient with paroxysmal atrial fibrillation, now with somewhat more rapid ventricular response this morning. 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 Acute pancreatitis --CT a/p revealed acute pancreatitis, CBD, 9mm, hx of cholecystectomy LFTs/lipase normalized MRCP negative for biliary ductal pathology S/P IVF resuscitation scheduled APAP, prn dilaudid for severe pain, oxy IR for moderate pain schedule stool softeners pt with continued abd pain, gradual advancement of diet source unclear, no alcohol, lipids WNL, ? 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 Rowan Ramirez consult cardiology Acute decompensated CHF in setting of pancreatitis Hypoxia in setting of pleural effusion obtain echocardiogram, daily weights, strict I and O, low salt diet received total of 60mg IV lasix on 06/10, will give additional 40mg IV lasix on 06/11 --CXR: Cardiomegaly with pulmonary vascular congestion. 2. Right larger than left pleural effusions with right basilar consolidation continue O2 supplementation, wean as able Hypokalemia 40meq KCL ordered this a.m. and ad 1200 repeat bmp in a.m. will also supplement oral mag HTN chronic, stable continue metoprolol hold lisinopril for now due to possible ADR of pancreatitis DVT ppx: Eliquis FULL CODE PCP: Edwin Taylor PA Dispo: transfer to PCU for high level of care in setting of Afib with RVR Pt was seen and examined in collaboration with Dr. Gomes, please see addendum A total of 60 minutes was spent coordinating, documenting, and providing care for this patient excluding time spent in the performance of separately billed services. This included personally viewing all current laboratories and imaging studies, medication reconciliation, outpatient chart review, and discussion with specialists. I spoke to Jose Cruz, pt , , and he is agreeable with above. Admission and Anticipated Discharge Date Admission Date: June 07, 2024 Subjective Patient was seen and examined in room 231-1. Follow up acute pancreatitis. She reports feeling better, but still having epigastric pain. She is tolerating liquids, but stands she hasn't had anything more solid than cream of wheat. Her pain is 3/10 in epigastrum. She also reports SOB and is on oxygen. She feels better on the oxygen. She denies any PND, orthopnea, f/c/s, chest pain, cough, n/v/d. She had a small BM yesterday. She can feel she is in, "afib." She is feeling her heart, "flutter." It otherwise is not bothersome for her. She has a hx of afib and she is on eliquis and metoprolol. She reports her Afib has been under control for several years and she has not follow up with cardiology in several years. Review of Systems Review of Systems: All systems reviewed & are unremarkable except as noted in HPI & below Physical Exam Physical Exam: Gen: WD/WN, F, sitting up in bed, NAD, A&O x3 HEENT: Normocephalic, atraumatic, conjunctivae moist, sclerae anicteric, mucous membranes moist. Lung: Clear to Auscultation bilaterally with decreased BS at bases, no wheezes/rales/rhonchi, on oxygen via NC 2L Heart: IRR/IRRno murmurs, rubs, or gallops Abdomen: Soft, NT, ND +BS x 4 Extremities: generalized anasarca Skin: Warm, no rash, negative turgor. Results & Data Results & Data Vital Signs (Past 12 Hours) Vital Signs Temp Pulse Pulse Resp BP Pulse Ox O2 Del Method 06/11/24 10:08 Nasal Cannula 06/11/24 10:08 36.7 C 110 H 17 109/77 91 Nasal Cannula 06/11/24 08:00 Nasal Cannula 06/11/24 07:06 37.0 C 76 16 117/78 96 Room Air O2 Flow Rate 06/11/24 10:08 2 06/11/24 10:08 2 06/11/24 08:00 2 06/11/24 07:06 Laboratory Results Short CBC 06/11/24 Range/Units 05:32 WBC 12.60 H (4.8-10.8) K/ul Hgb 12.9 (12.0-16.0) g/dl Hct 38.9 (37.0-47.0) % Plt Count 169 (130-400) K/uL BMP 06/11/24 05:32 Sodium 141 Potassium 3.4 L Chloride 102 Carbon Dioxide 32 BUN 18 Creatinine 0.79 Glucose 99 Calcium 7.7 L Liver Function 06/11/24 Range/Units 05:32 Total Bilirubin 1.0 D (0.2-1.0) mg/dl Direct Bilirubin 0.4 H (0-0.2) mg/dl AST 28 (13-39) U/L ALT 46 (7-52) U/L Alkaline Phosphatase 69 (34-104) U/L Albumin 2.7 L (3.4-5.0) gm/dl I have independently reviewed and interpreted patient's CBC, CMP , mag ECG Additional Comments: I have independently reviewed and interpreted patient's admitting EKG which revealed: 137 afib, RBBB, T wave inversion laterally, qtc 546ms
[2024-06-11] MEDS: METOPROLOL TARTRATE 1 MG/ML VIAL IV PRN (11:10)
--- NOTE | 2024-06-11 12:09 | Cardiology Consultation ---
Date of Consultation June 11, 2024 Assessment & Plan (1) Paroxysmal atrial fibrillation: * Agree with increasing metoprolol tartrate dose to 25 mg q 8 hours, next dose due at 1500 * Continue Eliquis 5 mg BID * Will review echocardiogram when completed (2) Acute pancreatitis: * 8 Liters positive since admission * Lipase was 13,400 u/l on 06/07/24 --> 11 u/l on 06/11/24 * mild pulm edema noted on CXR on 06/10/24 * Received IV furosemide on 06/10 and again on 06/11 and potassium supple mentation. History of Present Illness Attending Physician: Jose Gomes DO History of Present Illness Cara Young is a 78 year old female seen in cardiology consultation per the request of Enid Restrepo PA-C for the evaluation of atrial fibrillation with rapid ventricular response. Patient resides in [facility] and was visiting with family when she developed abdominal pain prompting ED visit and admission on 06/07/24. She was found to have pancreatitis on CT. Treatment thus far included IV fluids and she is 8 L positive. This morning while on the 3rd floor she was found to be tachycardic and EKG confirmed AF RVR. She has since been transferred to the PCU and her ventricular rate which was as high as 150-160 bpm on arrival to the unit is down to 90-110 bpm. She feels well. No chest pain, shortness of breath and abdominal pain is resolved. She has a history of PAF and had followed with cardiology in [place], but has not seen them in a number of years as she was doing well on Eliquis and metoprolol tartrate 25 mg BID. Allergies Allergy/AdvReac Type Severity Reaction Status Date / Time No Known Allergies Allergy Verified 06/07/24 08:52 Home Medications Medication Instructions Recorded Confirmed Type apixaban 5 mg tablet (Eliquis) 5 mg PO BID 06/07/24 06/07/24 History atorvastatin 10 mg tablet 40 mg PO HS 06/07/24 06/07/24 History esomeprazole magnesium 20 mg 20 mg PO DAILY 06/07/24 06/07/24 History capsule,delayed release (Nexium 24HR) lisinopril 10 mg tablet 10 mg PO BID 06/07/24 06/07/24 History metoprolol tartrate 25 mg tablet 25 mg PO BID 06/07/24 06/07/24 History Patient History Medical History HTN (hypertension) Atrial fibrillation History of ischemic stroke with bitemporal hemiopsia Surgical History Hx of prior ablation treatment History of partial hysterectomy Hx of cholecystectomy Family History Father Lung cancer Mother Colorectal cancer Social History (Updated 06/07/24 @ 08:04 by Enid Restrepo PA-C) Smoking Status: Never smoker Hx Alcohol Use: No Hx Substance Use: No Preferred Language: Icelandic Communication Ability: Effective Torch [employer]ight[employer]ater Required: No Beliefs That Will Affect Care: None marital status: Current Living Situation: Spouse Feels Safe at Home: Yes Assistive Devices: None Review of Systems Review of Systems: All systems reviewed & are unremarkable except as noted in HPI & below Physical Exam Constitutional: WD/WN, vitals as above Respiratory: normal respiratory effort, lungs clear to auscultation Cardiovascular: Rate/Rhythm: + tachycardic and + irregularly irregular Heart Sounds: normal S1 and normal S2; no murmur Extremities: no edema Gastrointestinal (Abdomen): normal bowel sounds, soft, nontender, no hepatosplenomegaly Neurologic: patellar DTR's 2+ bilat, sensation intact Results & Data Vital Signs (Past 12 Hours) Vital Signs Temp Pulse Pulse Resp BP Pulse Ox O2 Del Method 06/11/24 10:08 Nasal Cannula 06/11/24 10:08 36.7 C 110 H 17 109/77 91 Nasal Cannula 06/11/24 08:00 Nasal Cannula 06/11/24 07:06 37.0 C 76 16 117/78 96 Room Air O2 Flow Rate 06/11/24 10:08 2 06/11/24 10:08 2 06/11/24 08:00 2 06/11/24 07:06 Laboratory Results Cardiac Enzymes 06/11/24 Range/Units 05:32 AST 28 (13-39) U/L CBC 06/11/24 Range/Units 05:32 WBC 12.60 H (4.8-10.8) K/ul RBC 4.28 (4.20-5.40) M/uL Hgb 12.9 (12.0-16.0) g/dl Hct 38.9 (37.0-47.0) % Plt Count 169 (130-400) K/uL Comprehensive Metabolic Panel 06/11/24 Range/Units 05:32 Sodium 141 (136-145) mmol/L Potassium 3.4 L (3.5-5.1) mmol/L Chloride 102 (98-107) mmol/L Carbon Dioxide 32 (21-32) mmol/L BUN 18 (6-23) mg/dl Creatinine 0.79 (0.6-1.2) mg/dl Glucose 99 (70-99(Fasting)) mg/dl Calcium 7.7 L (8.6-10.3) mg/dl Direct Bilirubin 0.4 H (0-0.2) mg/dl AST 28 (13-39) U/L ALT 46 (7-52) U/L Alkaline Phosphatase 69 (34-104) U/L Total Protein 5.6 L (6.0-8.3) gm/dl Albumin 2.7 L (3.4-5.0) gm/dl Intake and Output 06/10/24 06/11/24 06/11/24 22:59 06:59 14:59 Output Total 300 / 1700 400 / 1700 Balance -300 / -1043.333 -400 / -1043.333 Output: Urine 300 / 1700 400 / 1700
[2024-06-11] MEDS: POTASSIUM CHLORIDE CRTAB 20 MEQ TABCR PO ONE (12:29)
[2024-06-11] MEDS: METOPROLOL TARTRATE 25 MG TAB PO SCH ×2 (15:33→20:56)
[2024-06-11] MEDS: DOCUSATE SODIUM/SENNA 50/8.6MG TAB PO SCH (20:55)
[2024-06-12 06:45] LABS: Basophils # (auto) 0.04 K/uL (0.00-0.20); Basophils % (auto) 0.3 %; Eosinophils # (auto) 0.04 K/uL (0.00-0.50); Eosinophils % (auto) 0.3 %; Hematocrit (blood only) 41.2 % (37.0-47.0); Hemoglobin 13.5 g/dl (12.0-16.0); Immature Granulocytes # (auto) 0.09 K/uL (0.01-0.20); Immature Granulocytes % (auto) 0.8 %; Lymphocytes # (auto) 0.79 K/uL (1.20-3.40); Lymphocytes % (auto) 6.8 %; Mean Corpuscular Hemoglobin 30.1 pg (25.0-34.0); Mean Corpuscular Hgb Conc 32.8 g/dL (32.0-36.0); Mean Corpuscular Volume 91.8 fL (80.0-100.0); Mean Platelet Volume 10.4 fL (9.4-12.4); Monocytes # (auto) 1.22 K/uL (0.11-0.59); Monocytes % (auto) 10.5 %; Neutrophils # (auto) 9.41 K/uL (1.40-6.50); Neutrophils % (auto) 81.3 %; Platelet Count 192 K/uL (130-400); RDW Coefficient of Variation 13.7 % (11.5-14.5); RDW Standard Deviation 46.1 fL (36.4-46.3); Red Blood Count 4.49 M/uL (4.20-5.40); White Blood Count 11.59 K/ul (4.8-10.8)
[2024-06-12 07:55] LABS: Albumin Level 2.8 gm/dl (3.4-5.0); BUN Creatinine Ratio 21.4 (10-20); Bilirubin Direct 0.3 mg/dl (0-0.2); Calcium 8.1 mg/dl (8.6-10.3); Creatinine Clr Calc Pharmacy 76.4 ml/min; Est GFR (African American) 96.9 ml/min; Est GFR (Non-African American) 83.6 ml/min; Potassium 3.7 mmol/L (3.5-5.1); Total Protein 5.9 gm/dl (6.0-8.3)
[2024-06-12] MEDS: POTASSIUM CHLORIDE CRTAB 20 MEQ TABCR PO STA (09:24)
[2024-06-12] MEDS: bisacodyL 5 MG TABEC PO ONE (09:25)
[2024-06-12] MEDS: FUROSEMIDE 40 MG/4 ML VIAL IV ONE (09:26)
[2024-06-12 09:35] LABS: Thyroid Stimulating Hormone 1.502 uIu/ml (0.300-4.500)
--- NOTE | 2024-06-12 10:21 | Hospitalist Progress Note ---
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 Acute pancreatitis --CT a/p revealed acute pancreatitis, CBD, 9mm, hx of cholecystectomy LFTs/lipase normalized MRCP negative for biliary ductal pathology S/P IVF resuscitation scheduled APAP, prn dilaudid for severe pain, oxy IR for moderate pain schedule stool softeners, add dulcolax x 1 today as she has not yet moved her bowels tolerating diet source unclear, no alcohol, lipids WNL, ? if idiopathic vs passage of cbd stone recommend repeat CT abd/pelvis in 4-6 weeks once resolution Hx of atrial fib with hx of ablation Atrial fibrillation with RVR likely exacerbated in setting of acute decompensated HFpEF hx of ischemic CVA x 2 with residual bitemporal hemianopsia - on statin, eliquis continue eliquis Cards increased metoprolol tartate to 25mg QID continue PRN IV Lopressor replete Lytes, keep K and mag > 4 and 2.0 respectively Pt follows with [facility], Dr. Rowan Phillips Pt has been compliant with eliquis and did not miss any doses, will await further cardiology recommendations for rate/rhythm control Acute decompensated CHF in setting of pancreatitis Hypoxia in setting of pleural effusion obtain echocardiogram, daily weights, strict I and O, low salt diet received total of 60mg IV lasix on 06/10, will give additional 40mg IV lasix on 06/11 --CXR: Cardiomegaly with pulmonary vascular congestion. 2. Right larger than left pleural effusions with right basilar consolidation continue O2 supplementation, wean as able Hypokalemia continue additional KCL supplementation to keep K > 4 continue oral mag, mag is 2.0 today HTN chronic, stable continue metoprolol hold lisinopril for now due to possible ADR of pancreatitis DVT ppx: Eliquis FULL CODE PCP: Edwin Taylor PA Dispo:continue PCU monitoring, pt is not yet stable for discharge A total of 52 minutes was spent coordinating, documenting, and providing care for this patient excluding time spent in the performance of separately billed services. This included personally viewing all current laboratories and imaging studies, medication reconciliation, outpatient chart review, and discussion with specialists. I spoke to Jose Cruz, pt , , and he is agreeable with above. Admission and Anticipated Discharge Date Admission Date: June 07, 2024 Supervising Physician Co-Signing Physician Notes Attending addendum: The patient was seen and examined in telemetry and in presence of the daughter She has been feeling better with decreasing abdominal discomfort Denies any pain but has been having mild diarrhea Also complains to have ongoing dizziness with ambulation, denies any palpitation or chest pain or shortness of breath On examination Lying in bed without any apparent distress Remains hemodynamically stable with tachycardia Tachycardic exposures with ambulation Her labs, medications and imaging studies reviewed She was admitted with acute pancreatitis which is resolved Has been having atrial fibrillation with occasional tachycardia and ongoing dizziness Awaiting cardiology reevaluation Agree with assessment plan as outlined by Enid Young PA-C and take the full responsibility of the patient care in this hospital. Dr Carol Marin Subjective Patient was seen and examined in room 231-1. Follow up acute pancreatitis, afib rvr and chf. Pt reports she is feeling better. She has a diminished appetite, but she is tolerating regular diet. She feels she is urinating the same amount she normally does. She denies f/c/s, chest pain, sob, cough, n/v/d or abd pain. She still has some abnormal soreness, but no natalio pain. She remains in afib and she does intermittently feel palpitations, but denies any other symptoms. I discussed with pts RN, Toya. She reports she remains in afib with rates in 130s-150s with minimal exertion. She did give prn IV beta kaylah this morning. Pt has not moved her bowels well since she has been here despite stool softners. She had an enema 2 days ago w/ minimal improvement. She feels bloated and is not passing much gas. Review of Systems Review of Systems: All systems reviewed & are unremarkable except as noted in HPI & below Physical Exam Physical Exam: Gen: WD/WN, F, sitting up in bed, NAD, A&O x3 HEENT: Normocephalic, atraumatic, conjunctivae moist, sclerae anicteric, mucous membranes moist. Lung: Clear to Auscultation bilaterally with improved aeration today compared to yesterdays exam, no wheezes/rales/rhonchi, on oxygen via NC 2L Heart: IRR/IRRno murmurs, rubs, or gallops Abdomen: Soft, NT, ND +BS x 4 Extremities: lower extremity swelling improving Skin: Warm, no rash, negative turgor. Results & Data Results & Data Vital Signs (Past 12 Hours) Vital Signs Temp Pulse Pulse Resp BP BP Pulse Ox 06/12/24 07:33 06/12/24 07:28 36.7 C 113 H 19 128/79 93 06/12/24 07:26 113 H 128/79 06/12/24 07:11 150 H 152/87 H 06/12/24 02:40 36.6 C 93 H 18 119/73 96 06/11/24 23:00 105 H 06/11/24 22:52 36.5 C 99 H 18 109/74 97 O2 Del Method O2 Flow Rate 06/12/24 07:33 Nasal Cannula 2 06/12/24 07:28 Room Air 06/12/24 07:26 06/12/24 07:11 06/12/24 02:40 Nasal Cannula 06/11/24 23:00 06/11/24 22:52 Nasal Cannula Laboratory Results I have independently reviewed and interpreted patient's CBC, BMP, procal and TSH Medications Administered Current Inpatient Medications Apixaban (Apixaban 5 Mg Tablet) 5 mg PO BID JARRED Stop: 07/07/24 08:59 Last Admin: 06/12/24 08:03 Dose: 5 mg Hydromorphone HCl (Hydromorphone Inj 0.5 Mg/0.5 Ml Syr) 0.5 mg IV Q6H PRN PRN Reason: Severe Pain (Scale 7, 8, 9,10) Stop: 06/21/24 08:13 Last Admin: 06/09/24 20:03 Dose: 0.5 mg Promethazine HCl (Phenergan) 12.5 mg in 50.5 mls @ 202 mls/hr IV Q6H PRN PRN Reason: Nausea And Vomiting Stop: 07/07/24 11:28 Last Infusion: 06/08/24 10:13 Dose: Infused Magnesium Oxide (Magnesium Oxide 400 Mg Tab) 400 mg PO BID [facility] Stop: 07/11/24 08:59 Last Admin: 06/12/24 08:04 Dose: 400 mg Metoprolol Tartrate (Metoprolol Tartrate 1 Mg/Ml Vial) 5 mg IV Q2H PRN PRN Reason: Tachycardia, HR > 110 Stop: 07/11/24 10:58 Last Admin: 06/12/24 07:11 Dose: 5 mg Metoprolol Tartrate (Metoprolol Tartrate 25 Mg Tab) 25 mg PO QID [facility] Stop: 07/11/24 20:59 Last Admin: 06/12/24 08:03 Dose: 25 mg Ondansetron HCl (Ondansetron Inj 2 Mg/Ml 2 Ml Vial) 4 mg IV Q6H PRN PRN Reason: Nausea Stop: 07/07/24 07:59 Last Admin: 06/09/24 09:06 Dose: 4 mg Oxycodone HCl (Oxycodone Hcl Ir 5 Mg Tab (Immediate Release)) 5 mg PO Q4 PRN PRN Reason: Moderate Pain (Scale 4, 5, 6) Stop: 06/21/24 08:13 Last Admin: 06/10/24 20:37 Dose: 5 mg Pantoprazole Sodium (Pantoprazole 40 Mg Tab) 40 mg PO QAM [facility] Stop: 07/11/24 08:59 Last Admin: 06/12/24 08:04 Dose: 40 mg Potassium Chloride (Potassium Chloride Crtab 20 Meq Tabcr) 40 meq PO ONE ONE Stop: 06/12/24 14:01 Senna/Docusate Sodium (Docusate Sodium/Senna 50/8.6mg Tab) 1 tab PO BID [facility] Stop: 07/11/24 20:59 Last Admin: 06/12/24 08:05 Dose: 1 tab ECG Additional Comments: I have independently reviewed and interpreted patient's admitting EKG which revealed: afib 111, t wave inversions more pronounced today inferior/lateral leads
--- NOTE | 2024-06-12 10:26 | XRay Report ---
TWO VIEW CHEST CLINICAL HISTORY: Hypoxia. Pancreatitis. FINDINGS: PA and lateral chest radiographs are compared to study dated 06/10/2024. Correlation is made with chest CT dated 06/07/2024. The heart is enlarged noting atherosclerotic calcification of the tho racic aorta. There is mild pulmonary vascular congestion. There are small pleural effusions, right la rger than left with dependent consolidation. There is no pneumothorax. The skeletal structures are os teopenic. The bony thorax is grossly intact. Degenerative change and hyperkyphosis is noted in the sp ine. IMPRESSION: 1. Cardiomegaly with mild pulmonary vascular congestion. 2. Right larger than left pleural effusions with dependent consolidation. ACT 112: Negative or not required by law. Electronically signed by: Anatoly Cheek M.D. 06/12/2024 10:25 AM
--- NOTE | 2024-06-12 10:38 | XRay Report ---
KUB CLINICAL HISTORY: Constipation. COMPARISON STUDY: CT of the abdomen and pelvis June 07, 2023. Abdominal series June 10, 2024. FINDINGS: Several calcified fibroids are incidentally noted. The bowel gas pattern is normal. The jose unt of stool is within normal limits. No evidence for free air on supine exam. IMPRESSION: 1. No evidence for a bowel obstruction. 2. Amount of stool within normal limits. ACT 112: Negative or not required by law. Electronically signed by: Kvng Mann M.D. 06/12/2024 10:37 AM
[2024-06-12] MEDS: POTASSIUM CHLORIDE CRTAB 20 MEQ TABCR PO ONE (14:13)
[2024-06-12] MEDS ORDERED: 0.2 MICRON FILTER SET 1 EACH IV STA (14:39)
[2024-06-12] MEDS ORDERED: STAT IV Infusion **Titration per Protocol STA (14:39)
[2024-06-12] MEDS ORDERED: AMIODARONE IV BOLUS & DRIP IV STA (14:39)
[2024-06-12] MEDS: AMIODARONE / D5W 150 MG/100 ML BAG IV STA (14:57)
[2024-06-12] MEDS: AMIODARONE / D5W 360 MG/200 ML BAG IV ONE (15:15)
--- NOTE | 2024-06-12 16:26 | Cardiology Progress Note ---
Date of Service June 12, 2024 Assessment & Plan (1) Paroxysmal atrial fibrillation: Plan: * Agree with increasing metoprolol tartrate 25 mg QID. * LFTs normal, start IV amiodarone for rate and perhaps rhythm control * Pt has been on chronic Eliquis. On day of admission, AM Eliquis dose was administered late at 14:33, otherwise has been on it without interruption and was in SR on presentation. * If remains in AF tomorrow, will consider DCCV. * NPO after MN (2) Acute pancreatitis: Plan: * 8 Liters positive since admission * Lipase was 13,400 u/l on 06/07/24 --> 11 u/l on 06/11/24 * mild pulmonary edema noted on CXR on 06/10/24 * Received IV furosemide on 06/10 , 06/11, 06/12 and potassium supplementation. Admission and Anticipated Discharge Date Admission Date: June 07, 2024 Subjective Patient seen in follow up of AF. Remains in AF, ventricular rate low 100's at rest, but elevated with minimal activity. Has been receiving intermittent doses of IV metoprolol in addition to oral dose. No symptoms at rest. Abdominal pain has resolved. Physical Exam Constitutional: WD/WN, vitals as above Respiratory: normal respiratory effort, lungs clear to auscultation Cardiovascular: Rate/Rhythm: + tachycardic and + irregularly irregular Heart Sounds: normal S1 and normal S2; no murmur Extremities: no edema Gastrointestinal (Abdomen): normal bowel sounds, soft, nontender, no hepatosplenomegaly Neurologic: patellar DTR's 2+ bilat, sensation intact Results & Data Vital Signs (Past 12 Hours) Vital Signs Temp Pulse Pulse Resp BP BP BP 06/12/24 15:40 36.8 C 95 H 19 103/78 06/12/24 13:00 06/12/24 12:42 110 H 125/70 06/12/24 12:27 125 H 132/74 06/12/24 10:57 112 H 06/12/24 10:48 36.5 C 93 H 19 127/81 06/12/24 07:33 06/12/24 07:28 36.7 C 113 H 19 128/79 06/12/24 07:26 113 H 128/79 06/12/24 07:11 150 H 152/87 H Pulse Ox Pulse Ox O2 Del Method O2 Del Method O2 Flow Rate O2 Flow Rate 06/12/24 15:40 95 Nasal Cannula 2 06/12/24 13:00 93 Nasal Cannula 2 06/12/24 12:42 06/12/24 12:27 06/12/24 10:57 06/12/24 10:48 96 Nasal Cannula 2 06/12/24 07:33 Nasal Cannula 2 06/12/24 07:28 93 Room Air 06/12/24 07:26 06/12/24 07:11 Laboratory Results Cardiac Enzymes 06/12/24 Range/Units 05:40 AST 32 (13-39) U/L CBC 06/12/24 Range/Units 05:40 WBC 11.59 H (4.8-10.8) K/ul RBC 4.49 (4.20-5.40) M/uL Hgb 13.5 (12.0-16.0) g/dl Hct 41.2 (37.0-47.0) % Plt Count 192 (130-400) K/uL Neut # (Auto) 9.41 H (1.40-6.50) K/uL Lymph # (Auto) 0.79 L (1.20-3.40) K/uL Christian # (Auto) 1.22 H (0.11-0.59) K/uL Eos # (Auto) 0.04 (0.00-0.50) K/uL Baso # (Auto) 0.04 (0.00-0.20) K/uL Comprehensive Metabolic Panel 06/12/24 Range/Units 05:40 Sodium 140 (136-145) mmol/L Potassium 3.7 (3.5-5.1) mmol/L Chloride 103 (98-107) mmol/L Carbon Dioxide 30 (21-32) mmol/L BUN 15 (6-23) mg/dl Creatinine 0.70 (0.6-1.2) mg/dl Glucose 104 H (70-99(Fasting)) mg/dl Calcium 8.1 L (8.6-10.3) mg/dl Direct Bilirubin 0.3 H (0-0.2) mg/dl AST 32 (13-39) U/L ALT 43 (7-52) U/L Alkaline Phosphatase 84 (34-104) U/L Total Protein 5.9 L (6.0-8.3) gm/dl Albumin 2.8 L (3.4-5.0) gm/dl Intake and Output 06/12/24 06/12/24 06/12/24 06:59 14:59 22:59 Intake Total 50 / 390 660 / 760 100 / 760 Output Total 500 / 1350 276 / 276 Balance -450 / -960 384 / 484 100 / 484 Intake: IV 100 / 100 Amiodarone / D5w 150 mg In 100 100 / 100 ml @ 600 mls/hr IV NOW STA Rx#: [id number] Oral 50 / 290 660 / 660 Output: Urine 500 / 1100 275 / 275 # Bowel Movements Other: # Unmeasured Voids 1 Weight 104.5 kg Weight Measurement Method Built in [facility]
[2024-06-12] MEDS: AMIODARONE / D5W 360 MG/200 ML BAG IV SCH (20:19)
--- NOTE | 2024-06-13 06:09 | Electrocardiogram Report ---
Test Reason : Blood Pressure : */* mmHG Vent. Rate : 137 BPM Atrial Rate : 68 BPM P-R Int : * ms QRS Dur : 144 ms QT Int : 362 ms P-R-T Axes : * -41 132 degrees QTcB Int : 546 ms Atrial fibrillation with rapid ventricular response Left axis deviation Right bundle branch block Moderate voltage criteria for LVH, may be normal variant Abnormal ECG When compared with ECG of 07-Jun-2024 05:35, Atrial fibrillation has replaced Sinus rhythm Vent. rate has increased by 66 bpm Confirmed by Johnathan Ruiz ([id number]) on 06/13/2024 6:09:11 AM Referred By: REFERRED SELF Confirmed By: Johnathan Ruiz
[2024-06-13 07:04] LABS: Hematocrit (blood only) 37.3 % (37.0-47.0); Hemoglobin 12.2 g/dl (12.0-16.0); Mean Corpuscular Hemoglobin 30.2 pg (25.0-34.0); Mean Corpuscular Hgb Conc 32.7 g/dL (32.0-36.0); Mean Corpuscular Volume 92.3 fL (80.0-100.0); Mean Platelet Volume 10.6 fL (9.4-12.4); Nucleated RBC # (auto) 0.02 K/uL (0.00-0.12); Nucleated RBC % (auto) 0.2 %; Platelet Count 194 K/uL (130-400); RDW Coefficient of Variation 14.1 % (11.5-14.5); RDW Standard Deviation 47.9 fL (36.4-46.3); Red Blood Count 4.04 M/uL (4.20-5.40)
[2024-06-13 07:20] LABS: BUN Creatinine Ratio 22.2 (10-20); Est GFR (African American) 93.6 ml/min; Est GFR (Non-African American) 80.8 ml/min; Magnesium 1.9 mg/dl (1.7-2.4); Phosphorus 1.9 mg/dl (2.5-4.9); Potassium 3.9 mmol/L (3.5-5.1)
--- NOTE | 2024-06-13 07:23 | Communication Note ---
Date of Service: June 13, 2024 Pt is SR having converted last evening. Advance diet. Cardioversion cancelled. Stop IV amiodarone.
--- NOTE | 2024-06-13 07:51 | Hospitalist Progress Note ---
<Statement entered by Oksana Martin MD - 06/13/24 18:04> Attending addendum: The patient was seen and examined in telemetry unit She has been feeling much better No new symptoms On examination No apparent distress at rest Remained hemodynamically stable and in sinus rhythm Other physical examination remained unremarkable Her labs and imaging studies noted Has hypophosphatemia which will be replaced Management of atrial fibrillation as per cardiology Remains medically stable Agree with assessment and plan as outlined above by Debo Mendoza and take full responsibility of the patient care in the hospital. 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 Acute pancreatitis --CT a/p revealed acute pancreatitis, CBD, 9mm, hx of cholecystectomy LFTs/lipase normalized MRCP negative for biliary ductal pathology S/P IVF resuscitation scheduled APAP, prn dilaudid for severe pain, oxy IR for moderate pain schedule stool softeners, add dulcolax x 1 today as she has not yet moved her bowels tolerating diet source unclear, no alcohol, lipids WNL, ? if idiopathic vs passage of cbd stone recommend repeat CT abd/pelvis in 4-6 weeks once resolution Seems to be resolving Hx of atrial fib with hx of ablation Atrial fibrillation with RVR likely exacerbated in setting of acute decompensated HFpEF hx of ischemic CVA x 2 with residual bitemporal hemianopsia - on statin, eliquis continue eliquis Cards increased metoprolol tartate to 25mg QID continue PRN IV Lopressor replete Lytes, keep K and mag > 4 and 2.0 respectively Pt follows with [facility], Dr. Rowan Phillips Pt has been compliant with eliquis and did not miss any doses. IV Amoiodarone started yesterday; spontaneous conversion overnight into 06/13. Amiodarone drip stopped on 06/13; cardioversion cancelled Patient did go back into AF RVR today; Cardiology ordered Diltiazem IV push. Pt did convert to SR around 1450. Advance diet as tolerated. Acute decompensated CHF in setting of pancreatitis Hypoxia in setting of pleural effusion obtain echocardiogram, daily weights, strict I and O, low salt diet received total of 60mg IV lasix on 06/10, will give additional 40mg IV lasix on 06/11; received Lasix 40 mg 06/12 --CXR: Cardiomegaly with pulmonary vascular congestion. 2. Right larger than left pleural effusions with right basilar consolidation continue O2 supplementation, wean as able; weaned from 2LNC --> 1LNC today appears euvolemic on examination Does not appear reliable I/O; recommend closer I/O Repeat PA/Lat CXR today Will order Lasix 40 mg today Hypophosphatemia: acute Phos 1.9; replace with K+Phos 21 mml; be cautious of fluid overload; switched over to oral Hypokalemia: continue additional KCL supplementation to keep K > 4; K+ 3.9 today Replace with K+Phos as outlined above. Po kcl continue oral mag; Mg+ 1.9 on 06/13 HTN: chronic, stable continue metoprolol hold lisinopril for now due to possible ADR of pancreatitis; await recs with cards for restart Disposition: DVT ppx: Eliquis FULL CODE PCP: Edwin Taylor PA Continue PCU monitoring A total of 51 minutes was spent coordinating, documenting, and providing care for this patient excluding time spent in the performance of separately billed services. This included personally viewing all current laboratories and imaging studies, medication reconciliation, outpatient chart review, and discussion with specialists. Admission and Anticipated Discharge Date Admission Date: June 07, 2024 Subjective Patient sitting in her hospital bedside chair in no apparent distress; quite cheerful. Pt denies fever, chills, MALDONADO, dizziness, chest pain, palpitations, SOB Decreased from 2LNC--> 1LNC; able to speak in complete sentences without dyspnea. SpO2 97% Tolerating advancing diet See A/P for further details Review of Systems Review of Systems: Neuro: (-) Falls, trauma, slurred speech HEENT: (-) MALDON[place]O, dizziness, dysphagia, visual or auditory changes CV: (-) CP, palpitations, swelling Resp: (-) SOB GI: (-) appetite changes, N/V/D, bowel changes : (-) urinary changes Skin: (-) rashes Psych: (-) anxiety, depression Physical Exam Physical Exam: Neuro: AAOx4, PERRLA, no aphagia, memory changes, CNII-XII grossly intact HEENT: head normocephalic, moist mucus membranes CV: S1/S2, (-) M/G/R, (-) edema, cap refill < 3 seconds Resp: Lungs CTA in all gamino. On 1LNC GI: Abdomen S/NT/ND, Ax4 bowel sounds, (-) CVA tenderness Musculoskeletal: 5/5 B/L UE strength, 5/5 B/L LE strength. No gait disturbance Skin: (-) rashes , (-) erythema. Psych: euthymic mood Results & Data Results & Data Vital Signs (Past 12 Hours) Vital Signs Temp Pulse Pulse Resp BP Pulse Ox O2 Del Method 06/13/24 07:14 79 06/13/24 03:14 36.9 C 79 20 121/63 96 Nasal Cannula 06/13/24 00:39 Nasal Cannula 06/12/24 23:23 36.5 C 74 18 116/73 94 Nasal Cannula 06/12/24 23:00 79 06/12/24 20:35 36.9 C 76 18 117/74 98 Nasal Cannula O2 Flow Rate 06/13/24 07:14 06/13/24 03:14 2 06/13/24 00:39 2 06/12/24 23:23 2 06/12/24 23:00 06/12/24 20:35 2 Laboratory Results Short CBC 06/13/24 Range/Units 05:28 WBC 10.80 (4.8-10.8) K/ul Hgb 12.2 (12.0-16.0) g/dl Hct 37.3 (37.0-47.0) % Plt Count 194 (130-400) K/uL BMP 06/12/24 06/13/24 05:40 05:28 Sodium 140 140 Potassium 3.7 3.9 Chloride 103 103 Carbon Dioxide 30 32 BUN 15 16 Creatinine 0.70 0.72 Glucose 104 H 105 H Calcium 8.1 L 8.0 L Liver Function 06/12/24 Range/Units 05:40 Total Bilirubin 1.0 (0.2-1.0) mg/dl Direct Bilirubin 0.3 H (0-0.2) mg/dl AST 32 (13-39) U/L ALT 43 (7-52) U/L Alkaline Phosphatase 84 (34-104) U/L Albumin 2.8 L (3.4-5.0) gm/dl
[2024-06-13] MEDS ORDERED: POTASSIUM PHOS 3 MMOL/1 ML INFUSION IV STA (07:58)
[2024-06-13] MEDS: POTASSIUM PHOSPHATE 21 MMOL in SODIUM CHLORIDE 0.9% 500 ML IV ONE (08:35)
--- NOTE | 2024-06-13 10:40 | Cardiology Progress Note ---
Date of Service June 13, 2024 Assessment & Plan (1) Paroxysmal atrial fibrillation: Plan: * Converted to sinus rhythm the evening of 06/12/2024 on oral metoprolol and an amiodarone infusion. * Amiodarone infusion discontinued, AM 06/13/2024 * Continue metoprolol tartrate 25 mg QID with plans to likely transition her to metoprolol succinate 50 mg twice daily. * Continue Eliquis 5 mg twice daily for stroke prophylaxis * Chest x-ray today reveals small to moderate right pleural effusion per my personal interpretation of the image, formal radiology report pending. * Patient received to receive 500 mL of fluid for phosphorus replacement. Will discontinue IV replacement and instead replace orally (2) Volume overload: Plan: * Iatrogenic volume overload in the setting of patient having required aggressive fluid resuscitation in the setting of pancreatitis earlier this hospital stay. * At time of initial cardiology consultation, patient was 8 L positive. * Proceed with furosemide 40 mg x 1 today 06/13/2024 have received daily doses 06/10, 06/11, 06/12 and now 06/13 * In addition to the phosphorus replacement, proceed with potassium chloride 20 mEq p.o. x 1 now. (3) Acute pancreatitis: Plan: * Lipase was 13,400 u/l on 06/07/24 --> 11 u/l on 06/11/24 Admission and Anticipated Discharge Date Admission Date: June 07, 2024 Subjective Patient seen in cardiology follow up. She is sitting in the bedside chair. Feeling well overall. Denies chest discomfort or shortness of breath at rest. She really has not walked much other than to the restroom. Per review of telemetry, she converted from atrial fibrillation to sinus rhythm on 06/12/2024 at 19: 24 without conversion pause remains in sinus rhythm for the most part in the 90s. Review of Systems Review of Systems: All systems reviewed & are unremarkable except as noted in HPI & below Physical Exam Constitutional: WD/WN, vitals as above Respiratory: Auscultation: + diminished lung sounds (Decreased breath sounds at the right base) Cardiovascular: Rate/Rhythm: + tachycardic and + irregularly irregular Heart Sounds: normal S1 and normal S2; no murmur Extremities: no edema Gastrointestinal (Abdomen): normal bowel sounds, soft, nontender, no hepatosplenomegaly Neurologic: patellar DTR's 2+ bilat, sensation intact Results & Data Vital Signs (Past 12 Hours) Vital Signs Temp Pulse Pulse Pulse Resp BP Pulse Ox 06/13/24 08:18 37.1 C 98 H 19 153/85 H 97 06/13/24 07:14 79 06/13/24 07:00 06/13/24 03:14 36.9 C 79 20 121/63 96 06/13/24 00:39 06/12/24 23:23 36.5 C 74 18 116/73 94 06/12/24 23:00 79 O2 Del Method O2 Flow Rate 06/13/24 08:18 Nasal Cannula 2 06/13/24 07:14 06/13/24 07:00 Nasal Cannula 2 06/13/24 03:14 Nasal Cannula 2 06/13/24 00:39 Nasal Cannula 2 06/12/24 23:23 Nasal Cannula 2 06/12/24 23:00 Laboratory Results CBC 06/13/24 Range/Units 05:28 WBC 10.80 (4.8-10.8) K/ul RBC 4.04 L (4.20-5.40) M/uL Hgb 12.2 (12.0-16.0) g/dl Hct 37.3 (37.0-47.0) % Plt Count 194 (130-400) K/uL Comprehensive Metabolic Panel 06/13/24 Range/Units 05:28 Sodium 140 (136-145) mmol/L Potassium 3.9 (3.5-5.1) mmol/L Chloride 103 (98-107) mmol/L Carbon Dioxide 32 (21-32) mmol/L BUN 16 (6-23) mg/dl Creatinine 0.72 (0.6-1.2) mg/dl Glucose 105 H (70-99(Fasting)) mg/dl Calcium 8.0 L (8.6-10.3) mg/dl phosphorus level 1.9, magnesium level 1.9 Intake and Output 06/12/24 06/13/24 06/13/24 22:59 06:59 14:59 Intake Total 470.94 / 1130.94 185.370 / 185.370 Output Total Balance 469.94 / 853.94 185.370 / 185.370 Intake: IV 270.94 / 270.94 185.370 / 185.370 Amiodarone / D5w 150 mg In 100 100 / 100 ml @ 600 mls/hr IV NOW STA Rx#: [id number] Amiodarone / D5w 360 mg In 200 170.94 / 170.94 185.370 / 185.370 ml @ 0.5 MG/MIN 16.667 mls/hr IV .Q12H [facility] Rx#:[id number] Oral 200 / 860 Output: # Bowel Movements 1 / 2 Other: Other Intake Source NPO # Unmeasured Voids 1 1 Weight 104 kg Weight Measurement Method Built in [facility]
[2024-06-13] MEDS: FUROSEMIDE 40 MG/4 ML VIAL IV ONE ×2 (10:55→11:28)
[2024-06-13] MEDS: POTASSIUM CHLORIDE CRTAB 20 MEQ TABCR PO STA (10:55)
[2024-06-13] MEDS: POT PHOSPHATE MONOBASIC W/ SOD TAB PO SCH (12:02)
[2024-06-13] MEDS: dilTIAZem HCl 5 MG/ML 5 ML VIAL IV STA (12:52)
--- NOTE | 2024-06-13 17:06 | XRay Report ---
TWO VIEW CHEST CLINICAL HISTORY: Pleural effusions. FINDINGS: PA and lateral chest radiographs are compared to study dated 06/12/2024. The heart is mildly enlarged noting atherosclerotic calcification of the thoracic aorta. Pulmonary vascular congestion a ppears improved from previous. There are right larger than left pleural effusions with right basilar consolidation. There is no pneumothorax. The skeletal structures are osteopenic. The bony thorax appe ars intact. Degenerative change is seen in the shoulders and spine. IMPRESSION: Right larger than left pleural effusions with right basilar consolidation. This is simila r to yesterday. ACT 112: Negative or not required by law. Electronically signed by: Anatoly Cheek M.D. 06/13/2024 5:04 PM
[2024-06-13] MEDS: METOPROLOL SUCC 50MG EXT REL TAB PO SCH (20:04)
[2024-06-14 06:45] LABS: Albumin Globulin Ratio 0.9 (0.9-2); Albumin Level 2.8 gm/dl (3.4-5.0); BUN Creatinine Ratio 19.5 (10-20); Bilirubin,Total 0.8 mg/dl (0.2-1.0); Creatinine Clr Calc Pharmacy 68.8 ml/min; Est GFR (African American) 86.3 ml/min; Est GFR (Non-African American) 74.5 ml/min; Globulin 3.2 gm/dl (2.5-4.0); Magnesium 1.8 mg/dl (1.7-2.4); Phosphorus 2.9 mg/dl (2.5-4.9); Potassium 3.7 mmol/L (3.5-5.1)
[2024-06-14 11:49] VITALS: RESP 16; TEMP 98.6; O2SAT 94
--- NOTE | 2024-06-14 14:12 | Cardiology Progress Note ---
Date of Service June 14, 2024 Assessment & Plan (1) Paroxysmal atrial fibrillation: Plan: * Converted to sinus rhythm the evening of 06/12/2024 on oral metoprolol and an amiodarone infusion. * Amiodarone infusion discontinued, AM 06/13/2024 * Metoprolol succinate 50 mg twice daily. * Another brief 2.5 hour episode of AF noted on 06/13, converted to SR with IV diltiazem 10 mg (no symptoms with that episode) * Continue Eliquis 5 mg twice daily for stroke prophylaxis * Chest x-ray 06/13 revealed small to moderate right pleural effusion per my personal interpretation of the imaeg * Phosphorus levels improved. * Stable for DC to home on Eliquis 5 mg PO BID, metoprolol succinate 50 mg BID, furosemide 20 mg daily, KCL 10 meq daily. Hold lisinopril until seen by PCP. * Recommend outpt cardiology follow up visit with her provider in [place]. Would repeat a CXR in 1-3 weeks for follow up. (2) Volume overload: Plan: * Iatrogenic volume overload in the setting of patient having required agg ressive fluid resuscitation in the setting of pancreatitis earlier this hospital stay. * At time of initial cardiology consultation, patient was 8 L positive. * Proceed with furosemide 40 mg x 1 today 06/13/2024 have received daily doses 06/10, 06/11, 06/12 and now 06/13 * In addition to the phosphorus replacement, proceed with potassium chloride 20 mEq p.o. x 1 now. (3) Acute pancreatitis: Plan: * Lipase was 13,400 u/l on 06/07/24 --> 11 u/l on 06/11/24 Admission and Anticipated Discharge Date Admission Date: June 07, 2024 Subjective Patient seen in cardiology follow up. She is sitting in the bedside chair and is accompanied by her . Felling well. Went back in to atrial fibrillation for 2 hours and 27 minutes yesterday afternoon and converted back to SR after receiving 10 mg of IV diltiazem. Telemetry reveals SR in the 80s. Physical Exam Constitutional: WD/WN, vitals as above Respiratory: normal respiratory effort, lungs clear to auscultation Auscultation: + diminished lung sounds (Decreased breath sounds at the right base) Cardiovascular: Rate/Rhythm: + tachycardic and + irregularly irregular Heart Sounds: normal S1 and normal S2; no murmur Extremities: no edema Gastrointestinal (Abdomen): normal bowel sounds, soft, nontender, no hepatosplenomegaly Neurologic: patellar DTR's 2+ bilat, sensation intact Results & Data Vital Signs (Past 12 Hours) Vital Signs Temp Pulse Pulse Pulse Resp BP Pulse Ox 06/14/24 11:48 37 C 94 H 16 119/77 94 06/14/24 10:25 83 06/14/24 07:38 37.2 C 93 H 18 132/87 93 06/14/24 07:32 06/14/24 02:58 36.8 C 80 16 113/71 95 O2 Del Method 06/14/24 11:48 Room Air 06/14/24 10:25 06/14/24 07:38 Room Air 06/14/24 07:32 Room Air 06/14/24 02:58 Room Air Laboratory Results Cardiac Enzymes 06/14/24 Range/Units 05:25 AST 39 (13-39) U/L Comprehensive Metabolic Panel 06/14/24 Range/Units 05:25 Sodium 138 (136-145) mmol/L Potassium 3.7 (3.5-5.1) mmol/L Chloride 99 (98-107) mmol/L Carbon Dioxide 32 (21-32) mmol/L BUN 15 (6-23) mg/dl Creatinine 0.77 (0.6-1.2) mg/dl Glucose 102 H (70-99(Fasting)) mg/dl Calcium 8.0 L (8.6-10.3) mg/dl AST 39 (13-39) U/L ALT 38 (7-52) U/L Alkaline Phosphatase 99 (34-104) U/L Total Protein 6.0 (6.0-8.3) gm/dl Albumin 2.8 L (3.4-5.0) gm/dl Intake and Output 06/13/24 06/14/24 06/14/24 22:59 06:59 14:59 Output Total 251 / 1351 400 / 1351 Balance -251 / -780.830 -400 / -780.830 Output: Urine 250 / 1350 400 / 1350 # Bowel Movements 1 / Other: # Unmeasured Voids 1 Weight 102.9 kg Weight Measurement Method Built in [facility]
[2024-06-14] MEDS: POTASSIUM CHLORIDE CRTAB 20 MEQ TABCR PO STA (14:18)
--- NOTE | 2024-06-14 14:25 | Discharge Summary ---
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 Her is at bedside who also helps elicit history. They are from the [facility]. They traveled up to the area to visit their camp. They came up yesterday on the way up at about 4:30 PM they ate dinner which consisted of a fast food hamburger. She went to bed at approximately 11 PM. She then woke up at about 2 AM with an acute onset of epigastric abdominal pain. The pain was nonradiating but severe, 10 out of 10. She felt sweaty and clammy. She was also nauseated and had a few episodes of emesis. She denies any hematemesis. She did have a bowel movement which was normal for her this morning. She denies any melena or hematochezia. She denies similar symptoms in the past. She denies any prior history of pancreatitis. She denies any recent illness. She denies any fever, chills, sweats, lightheadedness, dizziness, chest pain, shortness of breath, cough, URI symptoms, dysuria, increased urgency or frequency with urination. Upon arriving to ED she did receive multiple rounds of IV Dilaudid and she does feel this has alleviated her symptoms. She does have a prior history of a cholecystectomy roughly 10 years ago. She also required an ERCP in the past, but is unsure why. She denies any alcohol use. In ED patient remained hemodynamically stable. She had mild leukocytosis of 14,000. Her lipase was elevated at 13,400 and she had a mild elevation in her ALT at 92. Her total bilirubin was normal. She was mildly hyperglycemic at 175. She denies any prior history of diabetes. Admission Exam Per Admitting Provider Constitutional: WD/WN, vitals as above, NAD, sitting up in bed, pleasant, conversing easily Head: Normocephalic, Atraumatic Eyes: PERRL, conjunctivae normal, anicteric sclerae ENMT: external ear and nose normal, oropharynx normal Neck: trachea midline, no thyromegaly normal visual inspection Respiratory: normal respiratory effort, lungs clear to auscultation, no wheeze, rales, rhonchi. Normal insp/exp effort, no accessory muscle use Cardiovascular: RRR, no murmur, no edema Vessels: no JVD or carotid bruit Chest: normal inspection of chest Abdomen: normal bowel sounds, soft, TTP epigastrum, no rebound, guarding, no hepatosplenomegaly Musculoskeletal: no cyanosis or clubbing, extremities motor strength 5/5 Skin: no rashes, warm and dry normal turgor Neurologic: PERRL, EOMI, accommodation nl, no face palsy, no dysarthria CN's I I-XI intact bilaterally and moves all extremities Psychiatric: A+Ox3, euthymic affect : deferred Principal Diagnosis acute pancreatitis Discharge Exam Neuro: AAOx4, PERRLA, no aphagia, memory changes, CNII-XII grossly intact HEENT: head normocephalic, moist mucus membranes CV: S1/S2, (-) M/G/R, (-) edema, cap refill < 3 seconds Resp: Lungs CTA in all gamino. On 1LNC GI: Abdomen S/NT/ND, Ax4 bowel sounds, (-) CVA tenderness Musculoskeletal: 5/5 B/L UE strength, 5/5 B/L LE strength. No gait disturbance Skin: (-) rashes , (-) erythema. Psych: euthymic mood Discharge Data Allergies Allergy/AdvReac Type Severity Reaction Status Date / Time No Known Allergies Allergy Verified 06/07/24 08:52 Consultations 06/07/24 07:35 Consult Gastroenterology Routine 06/07/24 07:38 ED Decision to Admit Stat 06/11/24 08:10 Consult Cardiology Routine Ordered Studies 06/07/24 04:58 CTA abdomen pelvis w con [CT angio abdomen pelvis w con] Stat CTA chest dissec wo/w con [CT angio chest dissec wo/w con] Stat 06/07/24 08:13 MR MRCP Urgent Hospital Course (1) Acute pancreatitis: (2) History of ischemic stroke: (3) Atrial fibrillation: (4) HTN (hypertension): Plan This is a 78-year-old female who has a significant past medical history of atrial fibrillation anticoagulated on Eliquis with history of previous ablation, 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 An abdominal and pelvic CT revealed acute pancreatitis, CBD 9mm. Her LFT's and Lipase normalized after fluid resuscitation. An MRCP was negative for biliary ductal pathology. She was conservatively managed with IV fluid resuscitation and scheduled Tylenol and as needed opioids for moderate pain. The source of her acute pancreatitis is unclear. She does not consume alcohol. It is recommended that she has a repeat CT in 6 weeks after resolution. After bowel rest and IV fluid resuscitation her pancreatitis has resolved. She has a known history of atrial fibrillation with a history of an ablation she went into rapid A-fib with RVR after fluid resuscitation. She was placed on IV amiodarone infusion 06/13 with plans for cardioversion however she spontaneously returned to a normal sinus rhythm. On 06/14 she did return to AF with RVR and received IV Diltiazem. Last evening, 06/14 she converted back to sinus rhythm and continues. During this admission patient experienced acute decompensation of CHF in the setting of pancreatitis. She also started to experience hypoxia in the setting of pleural effusion that was identified on chest x-ray; right larger than left pleural effusions with right basilar consolidation. At this time she is deemed to be stable for discharge to home while continuing on her previously prescribed Eliquis 5 mg p.o. twice daily, switch to metoprolol succinate 50 mg twice daily, Lasix with KCl replacement. She was previously on lisinopril; hold until further evaluated by PCP. After discussion with cardiology recommended that patient follows with outpatient cardiology in [place] where patient resides normally. Recommendation would be to repeat a chest x-ray in 1 to 3 weeks for follow-up of pleural effusion resolution. Total Time Total Time Spent Total Time Spent (In Minutes): I spent a total of [53] minutes coordinating, documenting, and providing care for this patient excluding time spent in the performance of separately billed services. All of the aforementioned completed while collaborating with the assigned attending physician for a full treatment plan. Please see their addendum for further details. Discharge Plan Discharge Items Patient Disposition: Home - Self-Care Reason For Visit: ACUTE PANCREATITIS Discharge Diagnosis: Acute pancreatitis Rapid Atrial Fibrillation Activity: Resume your previous activity Bathing: No limitations Non-emergency contact: Primary Care Provider, Electric Freight Car Operator and [place] Call non-emergency contact if: you have any medication questions, your symptoms worsen, your pain is not controlled, your pain is concerning for you, you have a fever and your temperature is above 101.5 Follow-up/Referrals: Mara Rose MD [Primary Care Provider] - (Your physician's office is aware of your discharge from [facility]. A nurse from you doctor's office will contact you and assist you in scheduling a follow up appointment.) Diet: Heart Healthy Addtl Attending Provider Instructions: You were admitted to the [facility] on 06/07/24 with signs of acute pancreatitis which was confirmed with your blood work and CT scan results. You have received IV fluids and pain medication for treatment. We kept you without anything by mouth for bowel rest and consulted with the Gastroenterology specialists. Your Lipase level was initially 13,400 which has improved back to a normal level of 11. With the fluid administration you went into Atrial Fibrillation on 06/11/24. An Echocardiogram was performed and indicated that your ejection fraction (EF) was 65-70%, you have borderline concentric Left Ventricular Hypertrophy and normal left ventricle wall motion with normal valve function noted. You were see by cardiology and started on an antiarrythmic medication to help you return to a normal heart rhythm. Overnight you have remained in normal heart sinus rhythm. MEDICATION CHANGES: 1. STOP taking Metoprolol tartrate 25 mg by mouth 2. Start taking Metoprolol succinate 50 mg by mouth twice daily 3. Start taking Lasix 20 mg by mouth daily 4. Start taking Potassium Chloride (KCL) 10 mEq by mouth daily 5. STOP taking Lisinopril until you follow up with your primary care provider. 6. Continue with your previously prescribed Eliquis and Atorvastatin. SUMMARY OF TEST RESULTS: 06/07/24 1. Abdomen/Pelvis CT: Acute pancreatitis. 2. Chest CTA: Negative for acute pulmonary embolism 3. Cholangiopancreatopography MRI: Redemonstration of the patient's known acute pancreatits, prior cholecystectomy, normal caliber common bile duct with no evidence for choledocholithiasis and normal main pancreatic duct 06/08/24: 1. Chest X-ray: Right larger than left pleural effusions with right basilar consolidation. This is new from 06/07/2024. 06/11/24 1. ECHO: EF 65-70%, borderline concentric LVH, LV wall motion normal. No AR/MR/TR 06/12/24: 1. Chest x-ray: Cardiomegaly with mild pulmonary vascular congestion and right larger than left pleural effusions with dependent consolidation. 2. KUB: negative for bowel obstruction 06/13/24: 1. Chest X-ray: Right larger than left pleural effusions with right basilar consolidation. This is similar to yesterday. PENDING TEST RESULTS: N/A RECOMMENDATIONS FOR FOLLOW-UP: 1. PCP: Mara Rose; your transition of care nurses will call you to schedule an appointment when you are home. We will fax over the discharge summary from your hospital stay to them. 2. outpt cardiology follow up visit with your provider in [place]. Would repeat a chest xray in 1-3 weeks for follow up. OTHER INSTRUCTIONS: Seek medical attention if you have: * temperature above 101 * chest pain or trouble breathing * abdominal pain, nausea, vomiting * diarrhea, dark stools or bloody stools * any unanswered questions or concerns Call 911 if symptoms are severe. Please take good care of yourself. It has been a pleasure taking care of you. Please take care of yourself. If you have any questions regarding your recent hospitalization please contact [facility] and request Kyabran Kandisist @ [phone]. Pending Studies at Discharge: No Stand-Alone Forms: My [facility], Smoking Cessation Medications and DC Order Prescriptions: New metoprolol succinate 50 mg Tablet Extended Release 24 Hr 50 mg PO BID Qty: 30 0RF magnesium oxide 400 mg (241.3 mg magnesium) Tablet 400 mg PO BID Qty: 10 0RF furosemide 20 mg Tablet 20 mg PO QAM Qty: 10 0RF potassium chloride 10 mEq Tablet,Er Particles/Crystals 10 meq PO DAILY Qty: 10 0RF Continued atorvastatin 10 mg Tablet 40 mg PO HS Rx Instructions: pt unsure of dose Eliquis 5 mg Tablet 5 mg PO BID esomeprazole magnesium [Nexium 24HR] 20 mg Capsule,Delayed Release(Dr/Ec) 20 mg PO DAILY Discontinued lisinopril 10 mg Tablet 10 mg PO BID metoprolol tartrate 25 mg Tablet 25 mg PO BID Discharge Orders: Discharge Order (Routine); Ordered 06/14/24 Ordered By: Debo Shelley/Other Patient Handouts: Understanding Pancreatitis Admission Data Admit Date/Time: 06/07/24 07:34 Attending Provider: Oksana Marin Admit Provider: Jose Gomes Primary Care Provider: Mara Rose Other Providers: Rafal Lewis; Jose Gomes; Judson Estrella Other Interventions: Discharge Summary Assessment (RN) Last Done: 06/14/24 14:50 Supervising Physician Co-Signing Physician Notes Attending addendum: The patient was seen and examined in telemetry unit She has been feeling much better and ambulating in the room without any difficulties Denies any palpitation, chest pain or shortness of breath She will be discharged home this afternoon after discussion with the electronic engineering technician On examination No apparent distress or symptoms with ambulation Remains hemodynamically stable with blood pressure on the upper side at 147/81 Other system examination remains unremarkable Her discharge instruction, medications and labs reviewed Agree with assessment and plan as outlined above by MARIBEL Mcknight and take the full responsibility of the patient care Total time spent in documentation and discussion with the patient was [address] Carol Marin
[2024-06-14 15:02] VITALS: BP 147/81; PULSE 72
--- NOTE | 2024-06-14 21:40 | Electrocardiogram Report ---
Test Reason : Blood Pressure : */* mmHG Vent. Rate : 111 BPM Atrial Rate : 108 BPM P-R Int : * ms QRS Dur : 140 ms QT Int : 366 ms P-R-T Axes : * -30 -65 degrees QTcB Int : 497 ms Atrial fibrillation with rapid ventricular response Left axis deviation Right bundle branch block T wave abnormality, consider inferolateral ischemia Abnormal ECG When compared with ECG of 11-Jun-2024 08:35, T wave inversion now evident in Inferior leads T wave inversion more evident in Lateral leads Confirmed by Johnathan Ruiz ([id number]) on 06/14/2024 9:40:09 PM Referred By: REFERRED SELF Confirmed By: Johnathan Ruiz
--- NOTE | 2024-06-15 00:43 | Electrocardiogram Report ---
Test Reason : Blood Pressure : */* mmHG Vent. Rate : 77 BPM Atrial Rate : 77 BPM P-R Int : 150 ms QRS Dur : 146 ms QT Int : 434 ms P-R-T Axes : 31 -29 -47 degrees QTcB Int : 491 ms Normal sinus rhythm Right bundle branch block Abnormal ECG When compared with ECG of 12-Jun-2024 04:56, Sinus rhythm has replaced Atrial fibrillation Confirmed by Johnathan Ruiz ([id number]) on 06/15/2024 12:43:28 AM Referred By: REFERRED SELF Confirmed By: Johnathan Ruiz
[2024-06-15] MEDS ORDERED: FUROSEMIDE 20 MG TAB PO SCH (09:00)
[2024-06-15] MEDS ORDERED: POTASSIUM CHLORIDE 10 MEQ TABCR PO SCH (09:00)
== END 2024-06-14 15:54 | disposition home or self-care (01) | DRG 438 ==
LOC: ED 04:34 → SUATTDRO 07:34 → EDINP 07:34 → 2N 07:45 → 3W 06-08 22:18 → 2S 06-11 10:09